=== PATIENT | female | born 1980 | race Caucasian/White ===

== ENCOUNTER 2016-06-09 06:52 | Emergency (ER) | payer OTHER ==
[2016-06-09 07:01] VITALS: BMI 29.2
[2016-06-09] MEDS ORDERED: morphine CARPU-JECT 2 MG/1 ML DISP.SYRIN IVPUSH ONE (07:14)
[2016-06-09] MEDS ORDERED: ONDANSETRON 4 MG/2 ML VIAL IVPUSH STA (07:14)
[2016-06-09] MEDS ORDERED: morphine CARPU-JECT 4 MG/1 ML DISP.SYRIN ONE (07:17)
[2016-06-09] MEDS ORDERED: ONDANSETRON 4 MG/2 ML VIAL ONE (07:17)
--- NOTE | 2016-06-09 07:28 | PDOC ---
History of Present Illness - General History Source: Patient Exam Limitations: No Limitations - History of Present Illness Initial Comments: 06/09/16 07:21 35-year-old female with history of DVT and PE, presents with complaints c/o left knee pain s/p fall/. Pt states she fell while crossing the street. Pt denies any pain at this time. Pt denies being dizzy before the fall. <Tramaine Gongora - Last Filed: 06/09/16 07:21> <Joy Sanon - Last Filed: 06/09/16 08:54> - General Chief Complaint: Pain Stated Complaint: LEFT LEG PAIN Time Seen by Provider: 06/09/16 07:16 Past History - Past Medical History Suicide Attempt (Hx): No Other medical history: PE, DVT - Surgical History Abdominal Surgery: Yes Cholecystectomy: Yes - Immunization History Immunization Up to Date: Yes - Psycho/Social/Smoking Cessation Hx Anxiety: No Suicidal Ideation: No Smoking Status: No Smoking History: Current every day smoker Have you smoked in the past 12 months: Yes Number of Cigarettes Smoked Daily: 5 If you are a former smoker, when did you quit?: 3 Cigars Per Day: 0 Information on smoking cessation initiated: No 'Breaking Loose' booklet given: 07/25/13 Hx Alcohol Use: No Drug/Substance Use Hx: No Substance Use Type: None <Tramaine Gongora - Last Filed: 06/09/16 07:21> <Joy Sanon - Last Filed: 06/09/16 08:54> - Past Medical History Allergies/Adverse Reactions: Allergies Allergy/AdvReac Type Severity Reaction Status Date / Time acetaminophen [From Vicodin] Allergy Verified 06/09/16 06:54 hydrocodone bitartrate Allergy Verified 06/09/16 06:54 [From Vicodin] ibuprofen Allergy Nausea Verified 06/09/16 06:54 Home Medications: Ambulatory Orders Rivaroxaban [Xarelto -] 20 mg PO BID #42 tablet 12/09/15 Ibuprofen [Motrin -] 600 mg PO TID PRN #21 tablet 06/09/16 Review of Systems - Review of Systems Constitutional: Yes: Symptoms Reported, See HPI. No: Chills, Diaphoresis, Fever , Loss of Appetite, Night Sweats, Weakness, Weight Stable, Unintentional Wgt. Loss, Unexplained wgt Loss, Other HEENTM: Yes: Symptoms Reported, See HPI. No: Eye Pain, Blurred Vision, Tearing , Recent change in vision, Double Vision, Cataracts, Ocular Prothesis, Ear Discharge, Nose Pain, Nose Congestion, Tinnitus, Nose Bleeding, Hearing Loss, Throat Pain, Throat Swelling Respiratory: Yes: Symptoms reported, See HPI. No: Cough, Orthopnea, Shortness of Breath, SOB with Exertion, Wheezing, Productive cough Cardiac (ROS): Yes: Symptoms Reported, See HPI. No: Chest Pain, Edema, Irregular Heart Rate ABD/GI: Yes: Symptoms Reported, See HPI, Abdominal Distended. No: Abd. Pain w/ defecation, Blood Streaked Bowels : Yes: Symptoms Reported, See HPI. No: Burning, Dysuria, Discharge, Frequency , Flank Pain, Hematuria Musculoskeletal: Yes: Symptoms Reported, See HPI, Joint Pain (right knee), Joint Swelling (right knee), Muscle Pain Integumentary: Yes: Symptoms Reported, See HPI. No: Bruising, Change in Color, Change in Hair/Nails, Dryness, Flushing, Lesions, Lumps Neurological: Yes: Symptoms reported, See HPI. No: Headache, Numbness, Paresthesia, Pre-Existing Deficit Psychiatric: No: Anxiety, Frequent Crying, Stressors, Sleep Pattern Change Endocrine: Yes: Symptoms Reported, See HPI. No: Excessive Sweating, Flushing, Intolerance to Cold, Increased Hunger, Increased Thirst, Increased Urine Hematologic/Lymphatic: Yes: Symptoms Reported, See HPI. No: Anemia, Easy Bleeding, Easy Bruising, Bleeding Diathesis, Lymph Node Abnormalities <Tramaine Gongora - Last Filed: 06/09/16 07:21> *Physical Exam - Vital Signs Last Vital Signs Temp Pulse Resp BP Pulse Ox 98.2 F 135 H 26 H 122/86 98 06/09/16 06:55 06/09/16 06:55 06/09/16 06:55 06/09/16 06:55 06/09/16 06:55 - Physical Exam Comments: 06/09/16 07:26 *Physical Exam General Appearance: Yes: Appropriately Dressed. moderate distress No: , Intoxicated HEENT: positive: EOMI, MICHAEL, Normal ENT Inspection, Normal Voice, TMs Normal, Pharynx Normal. negative: Pale Conjunctivae, Photophobia, Scleral Icterus (R), Scleral Icterus (L) Neck: positive: Trachea midline, Normal Thyroid, Supple. negative: Tender, Rigid, Carotid bruit, Stridor, Lymphadenopathy (R), Lymphadenopathy (L), Thyromegaly Respiratory/Chest: positive: Lungs Clear, Normal Breath Sounds. negative: Chest Tender, Respiratory Distress, Accessory Muscle Use, Labored Respiration, RES, Crackles, Rales, Rhonchi, Stridor, Wheezing, Dullness Cardiovascular: positive: Regular Rhythm, Regular Rate, S1, S2. negative: Edema , JVD, Murmur, Bradycardia, Tachycardia Vascular Pulses: Dorsalis-Pedis (R): 2+, Doralis-Pedis (L): 2+ Gastrointestinal/Abdominal: positive: Normal Bowel Sounds, Flat, Soft. negative : Tender, Organomegaly, Pulsatile Mass, Increased Bowel Sounds, Decreased BS, Distended, Guarding, Rebound, Hernia, Hepatomegaly, Spleenomegaly Lymphatic: negative: Adenopathy, Tenderness Musculoskeletal: positive: Normal Inspection. decreased range of motion to left knee and left ankle, with deformity to left knee negative: CVA Tenderness, Extremity: positive: Normal Capillary Refill, Normal Inspection, Normal Range of Motion, Pelvis Stable. negative: Tender, Pedal Edema, Swelling, Integumentary: positive: Normal Color, Dry, Warm. negative: Cyanotic, Erythema , Jaundice, Rash Neurologic: positive: cold food packer II-XII NML intact, Fully Oriented, Alert, Normal Mood/ Affect, Motor Strength 5/5. negative: EOM Palsy, Facial Droop, Sensory Deficit <Tramaine Gongora - Last Filed: 06/09/16 07:21> - Vital Signs Last Vital Signs Temp Pulse Resp BP Pulse Ox 98.2 F 108 H 18 102/52 100 06/09/16 06:55 06/09/16 08:22 06/09/16 08:22 06/09/16 08:22 06/09/16 08:22 <Joy Sanon - Last Filed: 06/09/16 08:54> ED Treatment Course - RADIOLOGY Radiology Studies Ordered: Category Date Time Status KNEE 3 POS-RIGHT [RAD] Stat Radiology 06/09/16 07:13 Ordered LEG TIB/FIB-RIGHT [RAD] Stat Radiology 06/09/16 07:13 Ordered <Tramaine Gongora - Last Filed: 06/09/16 07:21> - LABORATORY CBC & Chemistry Diagram: 06/09/16 07:52 06/09/16 07:52 - ADDITIONAL ORDERS Additional order review: Laboratory Results 06/09/16 06/09/16 06/09/16 07:52 07:52 07:52 WBC 16.0 H D RBC 4.03 Hgb 13.4 Hct 38.9 MCV 96.5 H MCHC 34.4 RDW 12.7 Plt Count 374 MPV 7.6 Neutrophils % 73.7 Lymphocytes % 18.7 D Monocytes % 6.0 Eosinophils % 0.9 Basophils % 0.7 INR 1.81 H D Sodium 139 Potassium 4.4 Chloride 106 Carbon Dioxide 21 Anion Gap 12 BUN 13 Creatinine 0.6 D Creat Clearance w eGFR > 60 Random Glucose 91 Calcium 9.0 Total Bilirubin 0.9 D AST 24 ALT 24 Alkaline Phosphatase 75 Total Protein 7.7 Albumin 4.2 06/09/16 07:52 RBC 4.03 MCV 96.5 H MCHC 34.4 RDW 12.7 MPV 7.6 Neutrophils % 73.7 Lymphocytes % 18.7 D Monocytes % 6.0 Eosinophils % 0.9 Basophils % 0.7 - Medications Given in the ED: ED Medications Discontinued Medications Generic Name Dose Route Start Last Admin Trade Name Noreen PRN Reason Stop Dose Admin Morphine Sulfate 8 mg 06/09/16 07:14 06/09/16 07:35 Morphine Injection - IVPUSH 06/09/16 07:15 8 mg ONCE ONE Administration Ondansetron HCl 4 mg 06/09/16 07:14 06/09/16 07:57 Zofran Injection IVPUSH 06/09/16 07:15 4 mg ONCE STA Administration <Joy Sanon - Last Filed: 06/09/16 08:54> Medical Decision Making - Medical Decision Making 06/09/16 07:28 signed out case to Dr. Hoyt <Tramaine Gongora - Last Filed: 06/09/16 07:21> - Medical Decision Making 06/09/16 08:50 pt with mechanical trip and fall and acute left knee injury She denies any fevers or chills, and warmth or swelling of the knee Patient states that she always has an elevated white count, and her doctor is aware of this She also has a history of a prior DVT/PE, for which she is on Xarelto X-rays are negative for acute fracture Knee immobilizer and crutches Vital Signs - 24 hr 06/09/16 06/09/16 06:55 08:22 Temperature 98.2 F Pulse Rate 135 H Pulse Rate [ 108 H Left Radial] Respiratory 26 H 18 Rate Blood Pressure 122/86 Blood Pressure 102/52 [Left Arm] O2 Sat by Pulse 98 100 Oximetry (%) Patient more comfortable after pain meds I did speak to the patient about seeing a cable strander Her primary care physician is Dr aJsso <Joy Sanon - Last Filed: 06/09/16 08:54> *DC/Admit/Observation/Transfer <Tramaine Gongora - Last Filed: 06/09/16 07:21> <Joy Sanon - Last Filed: 06/09/16 08:54> Diagnosis at time of Disposition: Right knee sprain - Prescriptions Prescriptions: Ibuprofen [Motrin -] 600 mg PO TID PRN #21 tablet PRN Reason: Pain - Referrals Referrals: Boy Argueta MD [Staff Physician] - - Patient Instructions Printed Discharge Instructions: DI for Knee Sprain, How to Use a Knee Immobilizer Additional Instructions: Please follow-up with Dr. Argueta if pain continues greater than [address] ice to the affected area as much as he can tolerate for the next 2 days, rest, and elevate. May take Motrin 600 mg times a day since she did not have allergy to Motrin and only a GI intolerance.
--- NOTE | 2016-06-09 07:58 | PDOC ---
*Physical Exam - Vital Signs Last Vital Signs Temp Pulse Resp BP Pulse Ox 98.2 F 135 H 26 H 122/86 98 06/09/16 06:55 06/09/16 06:55 06/09/16 06:55 06/09/16 06:55 06/09/16 06:55 ED Treatment Course - LABORATORY CBC & Chemistry Diagram: 06/09/16 07:52 06/09/16 07:52 Medical Decision Making - Medical Decision Making 06/09/16 07:27 Patient received in sign out from Dr. guerrero. Patient status post mechanical fall this morning complaining of left knee pain. Patient ordered for x-ray labs and pain control. patient awaiting x-ray. 06/09/16 08:35 Laboratory Tests 06/09/16 07:52 WBC 16.0 H D Hgb 13.4 Hct 38.9 Neutrophils % 73.7 X-ray negator acute findings. patient placed in a knee immobilizer and given crutches with an orthopedist referral. Selected Entries 06/09/16 08:22 Pulse Rate [ 108 H Left Radial] Respiratory 18 Rate Blood Pressure 102/52 Left Arm O2 Sat by Pulse 100 Oximetry (%) Laboratory Tests 12/08/15 02/26/16 14:18 18:14 WBC 10.2 H 11.2 H 06/09/16 08:46 Questioned patient about elevated white count and patient states has had an elevated white count for the past year intermittently and has seen a wigs salesperson with no significant findings. Patient states also sees a neurologist for neuropathy and pain management secondary to left ankle pain status post surgery 6 months ago. *DC/Admit/Observation/Transfer Diagnosis at time of Disposition: Sprain of left knee Qualifiers: Encounter type: initial encounter Involved ligament of knee: unspecified ligament Qualified Code(s): S83.92XA - Sprain of unspecified site of left knee, initial encounter - Discharge Dispostion Disposition: HOME Condition at time of disposition: Good - Prescriptions Prescriptions: Ibuprofen [Motrin -] 600 mg PO TID PRN #21 tablet PRN Reason: Pain - Referrals Referrals: Boy Argueta MD [Staff Physician] - - Patient Instructions Printed Discharge Instructions: DI for Knee Sprain, How to Use a Knee Immobilizer Additional Instructions: Please follow-up with Dr. Argueta if pain continues greater than [address] ice to the affected area as much as she can tolerate for the next 2 days, rest, and elevate. May take Motrin 600 mg times a day since she did not have allergy to Motrin and only a GI intolerance.
[2016-06-09 08:19] LABS: BASOPHIL 0.7 % (0-2.0); EOSINOPHIL 0.9 % (0-4.5); MCH 33.2 pg (25.7-33.7); MCHC 34.4 g/dl (32.0-36.0); MEAN CELL VOLUME 96.5 fl (80-96); MEAN PLT VOLUME 7.6 fl (7.5-11.1); NEUTROPHILS 73.7 % (42.8-82.8); PLATELET COUNT 374 K/MM3 (134-434); RDW 12.7 % (11.6-15.6)
[2016-06-09 08:32] LABS: INR 1.81 (0.82-1.09); PROTHROMBIN TIME (PATIENT) 20.2 SEC (9.98-11.88)
[2016-06-09 08:46] LABS: ALBUMIN 4.2 g/dl (3.4-5.0); ALK PHOS 75 U/L (45-117); ANION GAP 12 (8-16); BILIRUBIN,TOTAL 0.9 mg/dL (0.2-1.0); CO2 21 mmol/L (21-32); CREATININE 0.6 mg/dL (0.55-1.02); GLUCOSE,RANDOM 91 mg/dL (74-106); SGPT/ALT 24 U/L (12-78); TOT PROT 7.7 g/dl (6.4-8.2)
[2016-06-09 08:47] LABS: SGOT/AST 24 U/L (15-37)
[2016-06-09 09:14] VITALS: BP 110/70; PULSE 60; TEMP 98.1
== END 2016-06-09 09:07 | disposition home or self-care (01) ==
LOC: JER 06:52
PROC: 2W3QX1Z Immobilization of Right Lower Leg using Splint (ICD-10-PCS; principal; 2016-06-09)
PROC: 3E033NZ Introduction of Analgesics, Hypnotics, Sedatives into Peripheral Vein, Percutaneous Approach (ICD-10-PCS; 2016-06-09)
PROC: 3E033GC Introduction of Other Therapeutic Substance into Peripheral Vein, Percutaneous Approach (ICD-10-PCS; 2016-06-09)
DX: S83.91XA Sprain of unspecified site of right knee, initial encounter (principal); W18.39XA Other fall on same level, initial encounter; Y93.89 Activity, other specified; Y92.410 Unspecified street and highway as the place of occurrence of the external cause
CPT/HCPCS: 36415; 73562-TC-RT; 73590-TC-RT; 80053; 84703; 85025; 85610; 86850; 86900; 86901; 99284-25

== ENCOUNTER → 2016-08-10 | Emergency (ER) | payer OTHER ==
[~2016-08-10] MED LIST: ONDANSETRON 4 MG/2 ML VIAL ONE; PANTOPRAZOLE SODIUM 40 MG VIAL ONE; morphine CARPU-JECT 4 MG/1 ML DISP.SYRIN ONE
[2016-08-10 21:03] VITALS: BP 120/78; PULSE 105; TEMP 97.6; BMI 28.6
== END | disposition left against medical advice (07) ==
LOC: JER 20:43
DX: Z53.21 Procedure and treatment not carried out due to patient leaving prior to being seen by health care provider (principal)
CPT/HCPCS: 99281-25

== ENCOUNTER 2016-09-06 18:40 | Emergency (ER) | payer OTHER ==
[2016-09-06 18:47] VITALS: BP 114/71; PULSE 86; TEMP 98; BMI 27.4
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
[2016-09-06] MEDS ORDERED: KETOROLAC TROMETHAMINE 60 MG/2 ML VIAL IM ONE (21:31)
[2016-09-06] MEDS ORDERED: KETOROLAC TROMETHAMINE 60 MG/2 ML VIAL ONE (21:39)
== END 2016-09-06 22:35 | disposition home or self-care (01) ==
LOC: JERFT 18:40
PROC: 3E0233Z Introduction of Anti-inflammatory into Muscle, Percutaneous Approach (ICD-10-PCS; principal; 2016-09-06)
DX: M54.5 Low back pain (principal); M25.562 Pain in left knee; V43.52XA Car driver injured in collision with other type car in traffic accident, initial encounter; Y92.414 Local residential or business street as the place of occurrence of the external cause; Y93.89 Activity, other specified; Y99.8 Other external cause status; J45.909 Unspecified asthma, uncomplicated; F17.210 Nicotine dependence, cigarettes, uncomplicated; Z86.718 Personal history of other venous thrombosis and embolism
CPT/HCPCS: 72100-TC; 73562-TC-LT; 73610-TC-LT; 73630-TC-LT; 84703; 99281-25

== ENCOUNTER 2016-09-20 04:28 | Inpatient (IN) | payer OTHER ==
--- NOTE | 2016-09-20 04:52 | PDOC ---
[id number] No Limitations - History of Present Illness Initial Comments: 09/20/16 04:59 The patient is a 36 year old female with significant past medical history of DVT and PE who presents to the ED for nausea and vomiting. Patient reports she had some fruit juice and smoothie for breakfast and later on the evening she started to developed nausea and multiple episodes of vomiting. States her most recent episodes of vomiting, she noted she streaks of blood. She reports everyone in the household also had the same breakfast and are not ill. Patient also has complaints of midline abdominal pain that extends from the epigastric region down to the suprapuib region with chills. Denies fevers or diarrhea. The patient denies diaphoresis, chills, cough, SOB, chest pain, and palpitations. Allergies: acetaminophen, hydrocodone bitartrate, ibuprofen Social History: No alcohol, tobacco, or drug use reported. Past Surgical History: cholecystectomy PCP: None reported <Lala Payne - Last Filed: 09/20/16 04:59> - General History Source: Patient <Tramaine Gongora - Last Filed: 09/20/16 19:35> - General Chief Complaint: Pain Stated Complaint: ABD PAIN/VOMITING Time Seen by Provider: 09/20/16 04:43 Past History <Lala Payne - Last Filed: 09/20/16 04:59> - Past Medical History Asthma: Yes Suicide Attempt (Hx): No - Surgical History Abdominal Surgery: Yes Cholecystectomy: Yes - Immunization History Immunization Up to Date: Yes - Psycho/Social/Smoking Cessation Hx Anxiety: No Suicidal Ideation: No Smoking Status: No Smoking History: Current every day smoker Have you smoked in the past 12 months: No Number of Cigarettes Smoked Daily: 5 If you are a former smoker, when did you quit?: 3 Cigars Per Day: 0 Information on smoking cessation initiated: No 'Breaking Loose' booklet given: 07/25/13 Hx Alcohol Use: No Drug/Substance Use Hx: No Substance Use Type: None <Tramaine Gongora - Last Filed: 09/20/16 19:35> - Past Medical History Allergies/Adverse Reactions: Allergies Allergy/AdvReac Type Severity Reaction Status Date / Time ibuprofen Allergy Nausea Verified 09/20/16 04:38 acetaminophen [From Vicodin] AdvReac Verified 09/20/16 04:38 hydrocodone bitartrate AdvReac Verified 09/20/16 04:38 [From Vicodin] Home Medications: Ambulatory Orders NK [No Known Home Medication] 09/20/16 Review of Systems - Review of Systems Able to Perform ROS?: Yes Comments:: 09/20/16 05:00 CONSTITUTIONAL: +chills Absent: fever, no fatigue EYES: Absent: visual changes ENT: Absent: ear pain, no sore throat CARDIOVASCULAR: Absent: chest pain, no palpitations RESPIRATORY: Absent: cough, no SOB GI: +abdominal pain, nausea, vomiting Absent: no constipation, no diarrhea GENITOURINARY: Absent: dysuria, no frequency, no hematuria MUSCULOSKELETAL: Absent: back pain, no arthralgia, no myalgia SKIN: Absent: rash NEURO: Absent: headache <Lala Payne - Last Filed: 09/20/16 04:59> *Physical Exam - Vital Signs Last Vital Signs Temp Pulse Resp BP Pulse Ox 98.6 F 88 14 125/64 95 09/20/16 04:39 09/20/16 04:39 09/20/16 04:39 09/20/16 04:39 09/20/16 04:39 - Physical Exam Comments: 09/20/16 05:00 GENERAL: Well-appearing, well-nourished. No apparent distress. HEENT: Normocephalic, atraumatic. PERRL, EOM intact. CARDIOVASCULAR: Normal S1, S2. Regular rate and rhythm. PULMONARY: Clear to auscultation bilaterally. ABDOMEN: Soft, non-distended, mildly diffuse tenderness. No rebound or guarding. EXTREMITIES: Normal ROM in all four extremities. No gross deformities. SKIN: Warm, dry. No rash NEUROLOGICAL: No focal neurological deficits. <Lala Payne - Last Filed: 09/20/16 04:59> - Vital Signs Last Vital Signs Temp Pulse Resp BP Pulse Ox 98.6 F 88 14 125/64 95 09/20/16 04:39 09/20/16 04:39 09/20/16 04:39 09/20/16 04:39 09/20/16 04:39 <Tramaine Gongora - Last Filed: 09/20/16 19:35> ED Treatment Course - LABORATORY CBC & Chemistry Diagram: 09/20/16 04:55 09/20/16 04:55 <Tramaine Gongora - Last Filed: 09/20/16 19:35> Medical Decision Making - Medical Decision Making 09/20/16 19:35 Dr. Gongora: The scribe's documentation has been prepared under my direction and personally reviewed by me in its entirery. I confirm that the note above accurately reflects all work, treatment, procedures, and medical decision making performed by me. <Tramiane Gongora - Last Filed: 09/20/16 19:35> *DC/Admit/Observation/Transfer - Attestations Scribe Attestion: 09/20/16 05:00 Documentation prepared by Lala Payne, acting as medical technologist hematology for Tramaine Gongora MD/DO. <Lala Payne - Last Filed: 09/20/16 04:59> <Tramaine Gongora - Last Filed: 09/20/16 19:35> Diagnosis at time of Disposition: Intractable nausea and vomiting, Ileus Abdominal pain Qualifiers: Abdominal location: right lower quadrant Qualified Code(s): R10.31 - Right lower quadrant pain - Discharge Dispostion Condition at time of disposition: Stable
[2016-09-20] MEDS ORDERED: ONDANSETRON 4 MG/2 ML VIAL IVPUSH STA (04:53)
[2016-09-20] MEDS ORDERED: SODIUM CHLORIDE 1,000 ML IV STA ×3 (04:53→09:26)
[2016-09-20] MEDS ORDERED: PANTOPRAZOLE SODIUM 40 MG in SODIUM CHLORIDE 100 ML IVPB ONE (04:53)
[2016-09-20 05:04] LABS: BASOPHIL 0.3 % (0-2.0); MCH 32.1 pg (25.7-33.7); MCHC 33.4 g/dl (32.0-36.0); MEAN CELL VOLUME 96.1 fl (80-96); MEAN PLT VOLUME 7.2 fl (7.5-11.1); NEUTROPHILS 86.9 % (42.8-82.8); PLATELET COUNT 327 K/MM3 (134-434); RDW 13.4 % (11.6-15.6); WHITE BLOOD COUNT 18.2 K/mm3 (4.0-10.0)
[2016-09-20 05:29] LABS: ALBUMIN 4.5 g/dl (3.4-5.0); ALK PHOS 83 U/L (45-117); AMYLASE 77 U/L (25-115); ANION GAP 16 (8-16); BILIRUBIN,TOTAL 0.9 mg/dL (0.2-1.0); CALCIUM 9.4 mg/dL (8.5-10.1); CO2 26 mmol/L (21-32); COCKROFT - GAULT 100.4615; GLUCOSE,RANDOM 123 mg/dL (74-106); SGPT/ALT 37 U/L (12-78); TOT PROT 8.6 g/dl (6.4-8.2)
[2016-09-20 05:32] LABS: MAGNESIUM 2.3 mg/dL (1.8-2.4); SGOT/AST 26 U/L (15-37)
[2016-09-20] MEDS ORDERED: METOCLOPRAMIDE HCL INJECTION 10 MG/2 ML VIAL IVPUSH ONE (05:34)
[2016-09-20] MEDS ORDERED: morphine CARPU-JECT 2 MG/1 ML DISP.SYRIN IVPUSH ONE ×2 (05:34→06:36)
[2016-09-20] MEDS ORDERED: METOCLOPRAMIDE HCL INJECTION 10 MG/2 ML VIAL ONE (06:13)
[2016-09-20] MEDS ORDERED: morphine CARPU-JECT 2 MG/1 ML DISP.SYRIN ONE ×2 (06:13→07:42)
[2016-09-20] MEDS ORDERED: ONDANSETRON 4 MG/2 ML VIAL IVPUSH ONE (08:35)
[2016-09-20] MEDS ORDERED: ONDANSETRON 4 MG/2 ML VIAL ONE (08:47)
[2016-09-20 09:04] LABS: URINE APPEARANCE CLEAR; URINE BILIRUBIN NEGATIVE (NEGATIVE); URINE BLOOD 1+ (NEGATIVE); URINE COLOR STRAW; URINE GLUCOSE (UA) NEGATIVE (NEGATIVE); URINE KETONE 1+ (NEGATIVE); URINE LEUK ESTERASE NEGATIVE (NEGATIVE); URINE NITRITE NEGATIVE (NEGATIVE); URINE PROTEIN 2+ (NEGATIVE); URINE UROBILINOGEN NEGATIVE E.U./dl (0.2-1.0)
[2016-09-20] MEDS ORDERED: morphine CARPU-JECT 4 MG/1 ML DISP.SYRIN IVPUSH ONE ×2 (09:23→16:27)
[2016-09-20 09:24] LABS: URINE RBC 4 /hpf (0-3); URINE WBC 1 /hpf (3-5)
[2016-09-20] MEDS ORDERED: LEVOFLOXACIN 500 MG IVPB 100 ML IVPB ONE ×2 (09:25→10:30)
[2016-09-20] MEDS ORDERED: METRONIDAZOLE 500 MG PREMIXED 100 ML IVPB ONE ×3 (09:26→17:41)
[2016-09-20 09:29] LABS: URINE MARIJUANA THC POSITIVE ng/ml (CUTOFF=50)
--- NOTE | 2016-09-20 09:32 | PDOC ---
*Physical Exam - Vital Signs Last Vital Signs Temp Pulse Resp BP Pulse Ox 99.3 F 60 16 121/45 98 09/20/16 07:08 09/20/16 07:40 09/20/16 07:40 09/20/16 07:40 09/20/16 07:40 ED Treatment Course - LABORATORY CBC & Chemistry Diagram: 09/20/16 04:55 09/20/16 04:55 - ADDITIONAL ORDERS Additional order review: Laboratory Results 09/20/16 09/20/16 09/20/16 04:55 04:55 04:55 Sodium 141 Potassium 4.4 Chloride 99 Carbon Dioxide 26 D Anion Gap 16 BUN 14 Creatinine 1.0 D Creat Clearance w eGFR > 60 Random Glucose 123 H D Calcium 9.4 Magnesium 2.3 Total Bilirubin 0.9 AST 26 ALT 37 D Alkaline Phosphatase 83 Total Protein 8.6 H Albumin 4.5 Total Amylase 77 Lipase 87 Serum , Qual Negative Urine Color Straw Urine Appearance Clear Urine pH 6.0 Urine Protein 2+ H Urine Glucose (UA) Negative Urine Ketones 1+ H Urine Blood 1+ H Urine Nitrite Negative Urine Bilirubin Negative Urine Urobilinogen Negative Ur Leukocyte Esterase Negative Blood Type A POSITIVE Antibody Screen Negative 09/20/16 04:55 RBC 4.42 MCV 96.1 H MCHC 33.4 RDW 13.4 MPV 7.2 L Neutrophils % 86.9 H Lymphocytes % 8.7 D Monocytes % 4.1 Eosinophils % 0.0 D Basophils % 0.3 - RADIOLOGY Radiology Studies Ordered: Category Date Time Status CHEST X-RAY PORTABLE* [RAD] Stat Radiology 09/20/16 07:11 Completed - Medications Given in the ED: ED Medications Discontinued Medications Generic Name Dose Route Start Last Admin Trade Name Freq PRN Reason Stop Dose Admin Pantoprazole Sodium 40 mg/ 100 mls @ 200 mls/hr 09/20/16 04:53 09/20/16 05:11 Sodium Chloride IVPB 09/20/16 05:22 200 mls/hr ONCE ONE Administration Sodium Chloride 1,000 mls @ 1,000 mls/hr 09/20/16 04:53 09/20/16 06:52 Normal Saline - IV 09/20/16 05:52 1,000 mls/hr ASDIR STA Administration Sodium Chloride 1,000 mls @ 1,000 mls/hr 09/20/16 04:53 09/20/16 05:11 Normal Saline - IV 09/20/16 05:52 1,000 mls/hr ASDIR STA Administration Metoclopramide HCl 10 mg 09/20/16 05:34 09/20/16 06:18 Reglan Injection - IVPUSH 09/20/16 05:35 10 mg ONCE ONE Administration Morphine Sulfate 2 mg 09/20/16 05:34 09/20/16 06:18 Morphine Injection - IVPUSH 09/20/16 05:35 2 mg ONCE ONE Administration Morphine Sulfate 2 mg 09/20/16 06:36 09/20/16 07:45 Morphine Injection - IVPUSH 09/20/16 06:37 2 mg ONCE ONE Administration Ondansetron HCl 4 mg 09/20/16 04:53 09/20/16 05:11 Zofran Injection IVPUSH 09/20/16 04:54 4 mg ONCE STA Administration Ondansetron HCl 4 mg 09/20/16 08:35 09/20/16 08:50 Zofran Injection IVPUSH 09/20/16 08:36 4 mg ONCE ONE Administration Progress Note - Progress Note Progress Note: This patient was endorsed to me by Dr. Christina at 7 AM pending results of the CT scan of the abdomen and pelvis which shows dilated loops of proximal small bowel c/w an ileus versus early small bowel obstruction and questionable chronic appendicitis. I have reevaluated the patient at this time and she is still complaining of nausea with diffuse abdominal pain. She has tenderness diffusely upon palpation of the abdomen with no rebound or guarding. I have ordered blood cultures, Zofran for nausea and morphine for pain as well as IV fluids for hydration. I spoke to Dr. Jeffers regarding admission to [facility] floor. Dr. Jeffers requested consult for surgery and ID which have been placed. The patient has also had Flagyl and Levaquin ordered for antibiotic coverage. *DC/Admit/Observation/Transfer Diagnosis at time of Disposition: Abdominal pain, Intractable nausea and vomiting, Ileus - Discharge Dispostion Condition at time of disposition: Stable Admit: Yes
[2016-09-20] MEDS ORDERED: morphine CARPU-JECT 4 MG/1 ML DISP.SYRIN ONE (10:29)
--- NOTE | 2016-09-20 14:10 | PN ---
Progress Note (short form) - Note Progress Note: ID consult dictated imp/reccd 36 year old female admitted with nausea/vomiting and abdominal pain continues to have RLQ pain she is awake and alert vomiting has resolved RLQ pain possible appendicitis by CT scan surgery to evaluate WBC 18.2 blood cultures sent given levaquin and flagyl in ED no iv flagyl available in the hospital will switch to zosyn
--- NOTE | 2016-09-20 15:47 | CONS ---
DATE OF CONSULTATION: DATE OF DICTATION: 09/20/2016 INFECTIOUS DISEASE CONSULTATION REQUESTING PHYSICIAN: Carlos Jeffers M.D. HISTORY OF PRESENT ILLNESS: This is a 36-year-old woman who presented to the emergency room early this morning with complaints of nausea, vomiting. This started last night. She had multiple episodes of vomiting, and she had abdominal pain. She presented to the emergency room with these complaints. She was noted to have a white count of 18,000. She had a CAT scan of her abdomen and pelvis done that showed mild dilatation of the proximal small bowel status post cholecystectomy, some chronic stranding around the appendix, and I am asked to see her for a white count of 18,000. She denies any fevers or chills. She now notes that she has pain in her right lower quadrant. She has stopped vomiting. PAST MEDICAL HISTORY: Notable for currently history of DVT and PE. She is status post cholecystectomy in the past. She takes no medications. Her PCP is , but she says she sees him infrequently, and she does not like to go to the doctor. ALLERGIES: She is allergic to ACETAMINOPHEN, HYDROCODONE, and IBUPROFEN. She takes no medications at home. FAMILY HISTORY: Noncontributory. SOCIAL HISTORY: She has no sick contacts. Nobody else is sick at home. There is no history of any travel. She smokes 5 cigarettes a day and she denies any history of illicit substance use. PHYSICAL EXAMINATION: Vital signs: Temperature 99.3, pulse 78, blood pressure 99/48, respiratory rate 18, saturating 98% on room air. HEENT: Normocephalic. Eyes are anicteric. Neck: Supple. Lungs: Clear to auscultation. Heart: Regular rate and rhythm. Abdomen: Soft, no distention. She has bowel sounds. She has right lower quadrant pain on palpation. Extremities: Without edema. LABORATORY: White count is 18.2, hemoglobin 14.2, platelets 327. BUN and creatinine are 14 and 1. LFTs are normal. Urinalysis is negative with 1 white cell. Blood cultures are pending. IMPRESSION: In summary, this is a 36-year-old woman admitted with nausea, vomiting, abdominal pain who now continued to have right lower quadrant pain. She is awake and alert with possible appendicitis by CAT scan. Surgery has been called to evaluate her. White count is 18.2, blood cultures have been sent. She was given Levaquin and Flagyl in the emergency room. Apparently there is no IV metronidazole in the hospital, and she has had vomiting and is currently n.p.o., so will switch her to Zosyn at this time. Further recommendations to follow. SOFIYA LEWIS M.D. [id number]
--- NOTE | 2016-09-20 17:08 | EKG ---
Test Reason : Blood Pressure : / mmHG Vent. Rate : 059 BPM Atrial Rate : 059 BPM P-R Int : 104 ms QRS Dur : 080 ms QT Int : 448 ms P-R-T Axes : 015 017 008 degrees QTc Int : 443 ms SINUS BRADYCARDIA WITH MARKED SINUS ARRHYTHMIA WITH SHORT IA OTHERWISE NORMAL ECG WHEN COMPARED WITH ECG OF 26-FEB-2016 17:58, T WAVE VARIATION Confirmed by EMELY ANAYA MD ([id number]) on 09/20/2016 5:08:34 PM Referred By: Confirmed By:EMELY ANAYA MD
[2016-09-20] MEDS ORDERED: DEXAMETHASONE SOD PHOSPHATE 4 MG/1 ML VIAL ONE (17:18)
[2016-09-20] MEDS ORDERED: PROPOFOL 20 ML ONE (17:23)
[2016-09-20] MEDS ORDERED: LIDOCAINE HCL 2% (20ML MULTI-DOSE VIAL) NR ONE (17:23)
[2016-09-20] MEDS ORDERED: ROCURONIUM BROMIDE 50 MG/5 ML VIAL ONE (17:24)
--- NOTE | 2016-09-20 17:25 | CONSULT ---
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 ...LMP: 07/25/13 Heme/Onc: Yes: Other (DVT, PE) Endocrine: Yes: Diabetes Mellitus - Past Surgical History Past Surgical History: Yes: Cholecystectomy, - Alcohol/Substance Use Hx Alcohol Use: No - Smoking History Smoking history: Current every day smoker Have you smoked in the past 12 months: No Aproximately how many cigarettes per day: 5 If you are a former smoker, when did you quit?: 3 Home Medications - Allergies Allergies/Adverse Reactions: Allergies Allergy/AdvReac Type Severity Reaction Status Date / Time ibuprofen Allergy Nausea Verified 09/20/16 04:38 acetaminophen [From Vicodin] AdvReac Verified 09/20/16 04:38 hydrocodone bitartrate AdvReac Verified 09/20/16 04:38 [From Vicodin] - Home Medications Home Medications: Ambulatory Orders NK [No Known Home Medication] 09/20/16 Family Disease History - Family Disease History Family Disease History: Other: Mother (kidney stones) Review of Systems - Review of Systems Constitutional: reports: Malaise. denies: Fever Neck: reports: No Symptoms Cardiovascular: denies: Chest Pain Respiratory: denies: Cough Gastrointestinal: reports: Abdominal Pain. denies: Diarrhea, Vomiting Genitourinary: reports: No Symptoms Neurological: denies: Change in LOC Pain Intensity: 6 Physical Exam Vital Signs: Vital Signs Temperature 98.1 F 09/20/16 15:40 Pulse Rate 81 09/20/16 15:40 Respiratory Rate 18 09/20/16 15:40 Blood Pressure 128/74 09/20/16 15:40 O2 Sat by Pulse Oximetry (%) 95 09/20/16 15:40 Constitutional: Yes: Mild Distress Neck: Yes: Supple Cardiovascular: Yes: Regular Rate and Rhythm Respiratory: Yes: Diminished Gastrointestinal: Yes: Soft, Tenderness (RLQ), Tenderness, Rebound (RLQ). No: Distention Extremities: Yes: WNL Neurological: Yes: Alert, Oriented Labs: CBC,CMP WBC 18.2 K/mm3 (4.0-10.0) H 09/20/16 04:55 RBC 4.42 M/mm3 (3.60-5.2) 09/20/16 04:55 Hgb 14.2 GM/dL (10.7-15.3) 09/20/16 04:55 Hct 42.5 % (32.4-45.2) 09/20/16 04:55 MCV 96.1 fl (80-96) H 09/20/16 04:55 MCHC 33.4 g/dl (32.0-36.0) 09/20/16 04:55 RDW 13.4 % (11.6-15.6) 09/20/16 04:55 Plt Count 327 K/MM3 (134-434) 09/20/16 04:55 MPV 7.2 fl (7.5-11.1) L 09/20/16 04:55 Neutrophils % 86.9 % (42.8-82.8) H 09/20/16 04:55 Lymphocytes % 8.7 % (8-40) D 09/20/16 04:55 Monocytes % 4.1 % (3.8-10.2) 09/20/16 04:55 Eosinophils % 0.0 % (0-4.5) D 09/20/16 04:55 Basophils % 0.3 % (0-2.0) 09/20/16 04:55 Sodium 141 mmol/L (136-145) 09/20/16 04:55 Potassium 4.4 mmol/L (3.5-5.1) 09/20/16 04:55 Chloride 99 mmol/L (98-107) 09/20/16 04:55 Carbon Dioxide 26 mmol/L (21-32) D 09/20/16 04:55 Anion Gap 16 (8-16) 09/20/16 04:55 BUN 14 mg/dL (7-18) 09/20/16 04:55 Creatinine 1.0 mg/dL (0.55-1.02) D 09/20/16 04:55 Creat Clearance w eGFR > 60 (>60) 09/20/16 04:55 Random Glucose 123 mg/dL (74-106) H D 09/20/16 04:55 Lactic Acid 1.965 mmol/L (0.4-2.0) 09/20/16 10:15 Calcium 9.4 mg/dL (8.5-10.1) 09/20/16 04:55 Magnesium 2.3 mg/dL (1.8-2.4) 09/20/16 04:55 Total Bilirubin 0.9 mg/dL (0.2-1.0) 09/20/16 04:55 AST 26 U/L (15-37) 09/20/16 04:55 ALT 37 U/L (12-78) D 09/20/16 04:55 Alkaline Phosphatase 83 U/L (45-117) 09/20/16 04:55 Total Protein 8.6 g/dl (6.4-8.2) H 09/20/16 04:55 Albumin 4.5 g/dl (3.4-5.0) 09/20/16 04:55 Total Amylase 77 U/L (25-115) 09/20/16 04:55 Lipase 87 U/L (73-393) 09/20/16 04:55 Serum , Qual Negative 09/20/16 04:55 Imaging - Results Cat Scan: Report Reviewed, Image Reviewed Problem List - Problems (1) Abdominal pain Code(s): R10.9 - UNSPECIFIED ABDOMINAL PAIN Qualifiers: Abdominal location: right lower quadrant Qualified Code(s): R10.31 - Right lower quadrant pain (2) Appendicitis Code(s): K37 - UNSPECIFIED APPENDICITIS Qualifiers: Appendicitis type: acute appendicitis Acute appendicitis type: with localized peritonitis Qualified Code(s): K35.3 - Acute appendicitis with localized peritonitis Assessment/Plan 36 female with RLQ pain, elevated WBC and stranding around the appendix consistent with appendicitis NPO IV fluids Antibiotics Consented for laparoscopic possible open appendectomy Risks and benefits explained Understands and agrees
[2016-09-20] MEDS ORDERED: PROMETHAZINE HCL 25 MG/1 ML VIAL IVPUSH PRN ×2 (17:36→19:02)
[2016-09-20] MEDS ORDERED: ONDANSETRON 4 MG/2 ML VIAL IVPUSH PRN ×3 (17:36→19:02)
[2016-09-20] MEDS ORDERED: LACTATED RINGERS SOLUTION 1,000 ML IV SCH ×2 (17:45→19:02)
[2016-09-20] MEDS ORDERED: METRONIDAZOLE 500 MG PREMIXED 500 MG/100 ML MG IVPB ONE (17:45)
[2016-09-20] MEDS ORDERED: LABETALOL HCL 5 MG/1 ML (100MG/20 ML VIAL) ONE (17:50)
[2016-09-20] MEDS ORDERED: PIPERACILLIN/TAZOB 3.375 GM/50 ML PRE-DOCKED IVPB SCH (18:00)
[2016-09-20] MEDS ORDERED: BUPIVACAINE HCL/PF 0.5% (5MG/ML) 10 ML VIAL IJ ONE (18:09)
--- NOTE | 2016-09-20 18:22 | OP ---
Operative Note - Note: Operative Date: 09/20/16 Pre-Operative Diagnosis: Abdominal pain, acute appendicitis Operation: Laparoscopic appendectomy, diagnostic laparoscopy Post-Operative Diagnosis: Same as Pre-op Surgeon: Surendra De Jesus Scientific Manager: Renetta Allen Anesthesia: General Specimens Removed: Appendix Estimated Blood Loss (mls): 5 Operative Report Dictated: Yes
[2016-09-20] MEDS ORDERED: DEXAMETHASONE SOD PHOSPHATE 4 MG/1 ML VIAL IVPUSH PRN (18:29)
[2016-09-20] MEDS ORDERED: PROMETHAZINE HCL 25 MG/1 ML VIAL IVPB PRN (18:29)
[2016-09-20] MEDS ORDERED: HYDROmorphone *PCA* 10MG/50ML DISP.SYRIN PCA SCH (18:30)
[2016-09-20] MEDS ORDERED: HYDROmorphone HCL CARPU-JECT 2 MG/1 ML DISP.SYRIN ONE (18:34)
[2016-09-20] MEDS: HYDROmorphone HCL CARPU-JECT 1 MG/1 ML DISP.SYRIN IVPUSH PRN ×2 (18:36→18:46)
--- NOTE | 2016-09-20 19:47 | SPEC ---
DATE OF OPERATION: 09/20/2016 SURGEON: Jada De Jesus M.D. MULTIMEDIA SPECIALIST: Reyna Jean PREOPERATIVE DIAGNOSIS: Abdominal pain, rule out acute appendicitis. POSTOPERATIVE DIAGNOSIS: Abdominal pain, rule out acute appendicitis. PROCEDURE: Laparoscopic appendectomy, diagnostic laparoscopy. SPECIMENS: Appendix. ESTIMATED BLOOD LOSS: 5 mL. DRAINS: None. ANESTHESIA: GT. REASON FOR THE PROCEDURE: This is a 36-year-old female who presents to the hospital with abdominal pain. She was found to have right lower quadrant pain which was localized, elevated white blood cell count and stranding around her appendix. Because of this, she was consented for laparoscopic, possible open appendectomy. RISKS AND BENEFITS: The risks and benefits were explained for a laparoscopic, possible open appendectomy. These included bleeding, infection, hernia, OH, DVT, PE, injury to surrounding structures including the liver, colon, bowel, bladder, ureter, vessel injury, nerve injury, abscess formation, staple line leak, staple line dehiscence as some of the possible complications. The patient understood and signed informed consent. DESCRIPTION OF PROCEDURE: The patient was placed supine on the operating room table. The patient underwent general endotracheal intubation. A Cronin catheter was inserted by the nursing staff. The abdomen was prepped and draped in the usual sterile fashion. A timeout was performed. A periumbilical incision was made and a 5-mm optical trocar was inserted under direct visualization with the laparoscope. Pneumoperitoneum was then established. Subsequently, a 5-mm trocar was placed in the suprapubic area and a 12-mm trocar placed in the left lower quadrant. The patient was placed in Trendelenburg right side up position. After meticulous dissection, the appendix was identified. The appendix was freed from its surrounding structures and the appendix was retracted to the anterior abdominal wall. The base of the appendix was identified. A window was created within the mesentery near the base of the appendix. The appendix at its base was stapled using a laparoscopic Endo-ANEUDY stapler with a white load. The mesoappendix was then transected using a laparoscopic Endo-ANEUDY stapler with a white load. The appendix was placed in an EndoCatch bag. Inspection of both staple lines was identified. The staple line at the base of the appendix was noted to be fully intact. Hemostasis was noted at the staple line of the mesoappendix. Copious irrigation and suction was performed. The appendix was removed from the abdominal cavity and sent off the operative field as specimen. The patient was then placed in left side up position. The 12-mm trocar was removed. The fascia at this site was closed using a 0 Vicryl suture with a Abhinav-Mayco device. The patient was then placed supine. Pneumoperitoneum was desufflated and all further trocars were removed. All incision sites were irrigated and Marcaine was injected at all incision sites. The fascial suture was secured. All incision sites were closed using 4-0 Biosyn. Sterile dressings were applied. The patient tolerated the procedure well. The Cronin catheter was removed and the patient was transferred to the recovery room in stable condition. Inspection of the abdominal cavity was performed to look for any other source of abdominal pain, and no further gross pathology was noted. JADA DE JESUS M.D. [id number]
[2016-09-20] MEDS: HEPARIN NA (PORCINE) 5,000 UNITS/ML 1ML VIAL SQ SCH (23:05)
[2016-09-20] MEDS: MEPERIDINE HCL CARPU-JECT 50 MG/1 ML DISP.SYRIN IM PRN (23:05)
--- NOTE | 2016-09-20 23:16 | HP ---
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 ...LMP: 07/25/13 Heme/Onc: Yes: Other (DVT, PE) Endocrine: Yes: Diabetes Mellitus - Past Surgical History Past Surgical History: Yes: Cholecystectomy, - Smoking History Smoking history: Current every day smoker Have you smoked in the past 12 months: No Aproximately how many cigarettes per day: 5 If you are a former smoker, when did you quit?: 3 - Alcohol/Substance Use Hx Alcohol Use: No Home Medications - Allergies Allergies/Adverse Reactions: Allergies Allergy/AdvReac Type Severity Reaction Status Date / Time ibuprofen Allergy Nausea Verified 09/20/16 04:38 acetaminophen [From Vicodin] AdvReac Verified 09/20/16 04:38 hydrocodone bitartrate AdvReac Verified 09/20/16 04:38 [From Vicodin] - Home Medications Home Medications: Ambulatory Orders NK [No Known Home Medication] 09/20/16 Family Disease History - Family Disease History Family Disease History: Other: Mother (kidney stones) Review of Systems - Review of Systems Constitutional: reports: Loss of Appetite, Weakness Eyes: reports: No Symptoms HENT: reports: No Symptoms Neck: reports: No Symptoms Cardiovascular: reports: No Symptoms Respiratory: reports: No Symptoms Gastrointestinal: reports: Abdominal Pain, Nausea, Vomiting Genitourinary: reports: No Symptoms Breasts: reports: No Symptoms Reported Musculoskeletal: reports: No Symptoms Integumentary: reports: No Symptoms, Erythema Neurological: reports: No Symptoms Endocrine: reports: No Symptoms Hematology/Lymphatic: reports: No Symptoms Psychiatric: reports: No Symptoms Physical Examination Vital Signs: Vital Signs Temperature 98.6 F 09/20/16 20:15 Pulse Rate 74 09/20/16 20:15 Respiratory Rate 18 09/20/16 20:15 Blood Pressure 110/70 09/20/16 20:15 O2 Sat by Pulse Oximetry (%) 96 09/20/16 20:00 Constitutional: Yes: Moderate Distress Eyes: Yes: WNL HENT: Yes: WNL Neck: Yes: WNL Cardiovascular: Yes: WNL Respiratory: Yes: WNL Gastrointestinal: Yes: Tenderness Renal/: Yes: WNL Musculoskeletal: Yes: Muscle Weakness Extremities: Yes: WNL Edema: No Peripheral Pulses WNL: Yes Integumentary: Yes: WNL Wound/Incision: Yes: Clean/Dry Neurological: Yes: WNL ...Motor Strength: WNL Psychiatric: Yes: WNL Imaging - Results Cat Scan: Report Reviewed Problem List - Problems (1) Abdominal pain Code(s): R10.9 - UNSPECIFIED ABDOMINAL PAIN Qualifiers: Abdominal location: right lower quadrant Qualified Code(s): R10.31 - Right lower quadrant pain (2) Appendicitis Code(s): K37 - UNSPECIFIED APPENDICITIS Qualifiers: Appendicitis type: acute appendicitis Acute appendicitis type: with localized peritonitis Qualified Code(s): K35.3 - Acute appendicitis with localized peritonitis (3) Distended abdomen Code(s): R14.0 - ABDOMINAL DISTENSION (GASEOUS) Assessment/Plan surgical eval lap appendectomy benefit outweighs risk npo ivf iv abx pain control dvt prophylaxis
[2016-09-21] MEDS ORDERED: PIPERACILLIN/TAZOB 3.375 GM/50 ML PRE-DOCKED IVPB SCH (02:00)
[2016-09-21] MEDS ORDERED: PIPERACILLIN/TAZOB 3.375 GM/50 ML PRE-DOCKED IVPB ONE (02:00)
[2016-09-21 03:01] VITALS: BMI 31.4
[2016-09-21] MEDS: HEPARIN NA (PORCINE) 5,000 UNITS/ML 1ML VIAL SQ SCH (05:40)
[2016-09-21] MEDS: MEPERIDINE HCL CARPU-JECT 50 MG/1 ML DISP.SYRIN IM PRN (05:41)
[2016-09-21 08:02] VITALS: BP 118/64; PULSE 68; TEMP 98
[2016-09-21 08:04] LABS: BASOPHIL 0.3 % (0-2.0); MCHC 34.1 g/dl (32.0-36.0); MEAN CELL VOLUME 96.9 fl (80-96); MEAN PLT VOLUME 7.1 fl (7.5-11.1); NEUTROPHILS 75.4 % (42.8-82.8); PLATELET COUNT 247 K/MM3 (134-434); RDW 13.2 % (11.6-15.6); WHITE BLOOD COUNT 14.4 K/mm3 (4.0-10.0)
--- NOTE | 2016-09-21 08:04 | PN ---
[id number]. Pain control well via prn meds. OOB and ambulating. Voiding spontaneously. Passing flatus. Tolerating PO clears. Denies n/v/f/c, CP or SOB. Afebrile. AVSS. PE Gen: alert. nad. Abd: all surgical ports intact. No hematoma. <Jameel Stewart P - Last Filed: 09/21/16 08:00> - Note Progress Note: Agree POD 1 Laparoscopic appendectomy, diagnostic laparoscopy Pain controlled Tolerating diet AVSS Abd soft CBC, BMP 09/21/16 06:30 09/21/16 06:30 Doing well Can be discharged home from surgical standpoint F/U in 2 wseeks [phone] <Surendra De Jesus - Last Filed: 09/21/16 09:54> Problem List - Problems (1) Appendicitis Assessment/Plan: POD #1 s/p Lap Appy Regular diet Cleared for dc home from a surgical standpoint after she tolerates her breakfast. Pt to f/u with Dr. De Jesus in his office downstairs in 7-10 days for post-op check. No further surgical intervention. On behalf of Dr. De Jesus, thank you for the opportunity to participate in your patient's care. Code(s): K37 - UNSPECIFIED APPENDICITIS Qualifiers: Appendicitis type: acute appendicitis Acute appendicitis type: with localized peritonitis Qualified Code(s): K35.3 - Acute appendicitis with localized peritonitis <Jameel Stewart P - Last Filed: 09/21/16 08:00> - Problems (1) Abdominal pain Code(s): R10.9 - UNSPECIFIED ABDOMINAL PAIN Qualifiers: Abdominal location: right lower quadrant Qualified Code(s): R10.31 - Right lower quadrant pain (2) Appendicitis Code(s): K37 - UNSPECIFIED APPENDICITIS Qualifiers: Appendicitis type: acute appendicitis Acute appendicitis type: with localized peritonitis Qualified Code(s): K35.3 - Acute appendicitis with localized peritonitis <Surendra De Jesus - Last Filed: 09/21/16 09:54>
--- NOTE | 2016-09-21 08:43 | PN ---
Progress Note, Physician Chief Complaint: ID Post op for uncomplicated appendicitis - Current Medication List Current Medications: Active Medications Dexamethasone Sodium Phosphate (Decadron Injection -) 4 mg IVPUSH ONCE PRN PRN Reason: NAUSEA AND/OR VOMITING Diphenhydramine HCl (Benadryl Injection -) 12.5 mg IVPUSH ONCE PRN PRN Reason: FOR ITCHING Heparin Sodium (Porcine) (Heparin -) 5,000 unit SQ TID JAQUELINE Last Admin: 09/21/16 05:40 Dose: 5,000 unit Hydromorphone HCl (Dilaudid Gi Technician -) 0 mg RETAIL FIELD MERCHANDISER RETAIL FIELD MERCHANDISER JAQUELINE PRN Reason: Protocol Stop: 09/27/16 18:30 Last Admin: 09/20/16 19:28 Dose: 10 mg Lactated Ringer's (Lactated Ringers Solution) 1,000 mls @ 125 mls/hr IV ASDIR JAQUELINE Last Admin: 09/20/16 20:30 Dose: 125 mls/hr Meperidine HCl (Demerol Injection -) 50 mg IM Q6H PRN PRN Reason: PAIN Last Admin: 09/21/16 05:41 Dose: 50 mg Piperacillin Sod/Tazobactam Sod (Zosyn 3.375gm Ivpb (Pre-Docked)) 3.375 gm IVPB Q8H-IV JAQUELINE PRN Reason: Protocol Last Admin: 09/21/16 01:48 Dose: 3.375 gm Promethazine HCl (Phenergan Injection -) 12.5 mg IVPB Q6H PRN PRN Reason: NAUSEA AND/OR VOMITING - Objective Vital Signs: Vital Signs Temperature 98.0 F 09/21/16 08:01 Pulse Rate 68 09/21/16 08:01 Respiratory Rate 18 09/21/16 08:01 Blood Pressure 118/64 09/21/16 08:01 O2 Sat by Pulse Oximetry (%) 95 09/20/16 20:00 Constitutional: Yes: Well Nourished, No Distress Cardiovascular: Yes: S1, S2 Respiratory: Yes: WNL, Regular, CTA Bilaterally Gastrointestinal: Yes: Soft, Other (Incisional tenderness) Labs: CBC, BMP 09/21/16 06:30 Assessment/Plan Laboratory Tests 09/20/16 09/21/16 04:55 06:30 WBC 18.2 H 14.4 H Hgb 11.7 D Plt Count 247 D Blood cultures no growth today Assessment From the ID standpoint can go No antibiotics Surgical followup Sisi JADE
[2016-09-21 08:57] LABS: ALBUMIN 3.1 g/dl (3.4-5.0); ALK PHOS 61 U/L (45-117); ANION GAP 13 (8-16); BILIRUBIN,TOTAL 0.7 mg/dL (0.2-1.0); CALCIUM 8.1 mg/dL (8.5-10.1); CO2 24 mmol/L (21-32); COCKROFT - GAULT 173.1195; CREATININE 0.6 mg/dL (0.55-1.02); GLUCOSE,RANDOM 91 mg/dL (74-106); SGOT/AST 17 U/L (15-37); SGPT/ALT 23 U/L (12-78); TOT PROT 6.1 g/dl (6.4-8.2)
[2016-09-21] MEDS ORDERED: INFLUENZA VACCINE 60 MCG/0.5 ML (P/F DISP.SYRIN 16-17) IM ONE (10:00)
--- NOTE | 2016-09-21 10:26 | PN ---
Progress Note (short form) - Note Progress Note: Anesthesia post op note. S/P appendectomy, POD#1. Patient seen and examined. VSS. Tolerating PO. No apperent post anesthesia complications. 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 Can start pain management by PO meds. Signed off.
--- NOTE | 2016-09-21 10:31 | SURG ---
Surgery Tile Professional Note Tile Professional: Renetta Allen PA-C Date of Service: 09/20/16 Diagnosis: Abdominal pain, acute appendicitis Procedure: Laparoscopic appendectomy, diagnostic laparoscopy I was present for the entirety of the operative procedure. For further detail, please refer to operative report. Visit type - Case Type Case Type: ED Admission
--- NOTE | 2016-09-21 11:20 | DS ---
Physical Examination Vital Signs: Vital Signs Temperature 98.0 F 09/21/16 08:01 Pulse Rate 68 09/21/16 08:01 Respiratory Rate 18 09/21/16 08:01 Blood Pressure 118/64 09/21/16 08:01 O2 Sat by Pulse Oximetry (%) 95 09/21/16 09:00 Constitutional: Yes: No Distress Eyes: Yes: WNL HENT: Yes: WNL Neck: Yes: WNL Cardiovascular: Yes: WNL Respiratory: Yes: Wheezes Gastrointestinal: Yes: Tenderness Renal/: Yes: WNL Musculoskeletal: Yes: WNL Extremities: Yes: WNL Edema: No Peripheral Pulses WNL: Yes Integumentary: Yes: WNL Wound/Incision: Yes: Clean/Dry Neurological: Yes: WNL ...Motor Strength: WNL Psychiatric: Yes: WNL Labs: CBC, BMP 09/21/16 06:30 09/21/16 06:30 Discharge Summary Reason For Visit: UNCONTROLLABLE NAUSEA,VOMITING,ABD PAIN Current Active Problems Abdominal pain (Acute) Appendicitis (Acute) Distended abdomen (Acute) Ileus (Acute) Intractable nausea and vomiting (Acute) SBO (small bowel obstruction) (Acute) Tobacco abuse (Acute) Procedures: Principal: appendectomy Other Procedures: labs Hospital Course: admitted with abd pain, surgery laproscopic appendectomy with surgery, dc home f /u pmd today Condition: Stable - Instructions Diet, Activity, Other Instructions: Dr. De Jesus's Discharge Instructions Dear Alis Post Operative Instructions Physical activity Resume your normal everyday activity as tolerated no heavy lifting or exercise until seen by your surgeon. You may walk unlimited amounts of and climb stairs. You may resume driving the car when you feel safe and comfortable behind the wheel. Wound care If you have a bandage, leave it on, and keep dry for 48 - 72 hours. After that time discard the outer bandage. If there are tapes on the skin under the outer bandage, leave them in place. They will peel off in the next 7 to 10 days. Do Not peel them off. You may shower 2 days after surgery. If there are tapes present on the skin, they can get wet. Diet There are no dietary restrictions. Eat healthy, high-fiber foods. Drink 6 to 8 glasses of liquid each day. This will assist in keeping your bowels are regular. Pain management You may take Tylenol or acetaminophen or Ibuprofen (for example, Motrin, Advil etc.) Any pain prescription medication ordered should be taken as prescribed for moderate to severe pain. Call Dr. De Jesus for any of the following: Severe pain not relieved by medication Fever of 101 or higher Excessive bleeding or drainage on dressing Inability to urinate Call the office for a post operative appointment in 7 - 10 days. Surendra De Jesus M.D. [address] [place] [address], [address] Suites Referrals: Surendra De Jesus MD [Staff Physician] - Simon Jasso [Primary Care Provider] - Disposition: HOME - Home Medications Comprehensive Discharge Medication List: Ambulatory Orders Acetaminophen [Tylenol] 325 mg PO QID #60 tablet 09/21/[address] jasso today or tomorrow
--- NOTE | 2016-09-28 11:19 | PATH ---
Surgical Pathology Report Patient Name: IVAN FREY [facility]. Rec. #: [id number] /Age/Gender: 1980 (Age: 36) / F Account: [id number] Location: [address] [place] [address]/[facility] Taken: 09/20/2016 Received: 09/21/2016 Reported: 09/23/2016 Physicians: Surendra De Jesus M.D. Specimen(s) Received APPENDIX Clinical History Appendicitis Final Diagnosis APPENDIX, APPENDECTOMY: APPENDIX WITH FOCAL FEATURES OF EARLY ACUTE APPENDICITIS. Electronically Signed Daniele Alanis M.D. Gross Description Received in formalin, labeled "appendix" is a 6 cm in length vermiform appendix with a stapled margin of resection and moderate attached fat. The serosa is moss-smart and smooth. Sectioning reveals a focally hemorrhagic lumen. The wall of the appendix averages 0.1 cm in thickness. Blogs Manager sections are submitted in one cassette. Additional sections are submitted as follows: 2-resection margin of appendix; 4-6-eoppamxx submitted remainder of appendix. /09/21/2016 [facility]09/21/2016
== END 2016-09-21 11:33 | disposition home or self-care (01) | DRG 225 ==
LOC: JER 04:28 → JERBED 09:32 → J6S 20:38
PROVIDERS: ADMIT Family Medicine; ATTEND Family Medicine
PROC: 0DTJ4ZZ Resection of Appendix, Percutaneous Endoscopic Approach (ICD-10-PCS; principal; 2016-09-20 17:00)
DX: K35.80 Unspecified acute appendicitis (principal); F17.210 Nicotine dependence, cigarettes, uncomplicated; E11.9 Type 2 diabetes mellitus without complications; R14.0 Abdominal distension (gaseous); K56.7 Ileus, unspecified; Z86.718 Personal history of other venous thrombosis and embolism; Z86.711 Personal history of pulmonary embolism
CPT/HCPCS: 36415; 71010-TC; 74176-TC; 80048; 80053; 80307; 81003; 81015; 82150; 83605; 83690; 83735; 84703; 85025; 86850; 86900; 86901; 87040; 88304-TC; 90686; 93005; 93010; 94010; 94760; 99285-25; G0008; J1644

== ENCOUNTER 2016-11-14 21:58 | Emergency (ER) | payer OTHER ==
[2016-11-14 22:10] VITALS: BP 143/66; PULSE 80; TEMP 98.8; BMI 28.6
--- NOTE | 2016-11-14 22:14 | PDOC ---
History of Present Illness - General History Source: Patient Exam Limitations: No Limitations - History of Present Illness Initial Comments: 11/14/16 22:15 The patient is a 36 year old female with history of polysubstance abuse, history of DVT brought in by EMS for 1 day of left diffuse abdominal pain, worst in the epigastrium, nausea, and multiple episodes of NBNB vomiting. She also complains of chest discomfort and shortness of breath. No fever or chills. No constipation or diarrhea. No chest pain or lightheadedness. Patient is a poor historian and remainder of history is limited. Reports allergies to ibuprofen, acetominophen, hydrocodone She is approximately 2 months s/p appendectomy 09/20/16. Surgical history appedectomy, cholecystectomy, <Deepika Chino - Last Filed: 11/15/16 00:05> <Beba Fang - Last Filed: 11/16/16 01:59> - General Chief Complaint: Pain Stated Complaint: VOMIITING Time Seen by Provider: 11/14/16 22:09 Past History <Deepika Chino - Last Filed: 11/15/16 00:05> - Past Medical History Asthma: Yes Suicide Attempt (Hx): No - Surgical History Abdominal Surgery: Yes Cholecystectomy: Yes - Immunization History Immunization Up to Date: Yes - Psycho/Social/Smoking Cessation Hx Anxiety: No Suicidal Ideation: No Smoking Status: No Smoking History: Never smoked Have you smoked in the past 12 months: No Number of Cigarettes Smoked Daily: 5 If you are a former smoker, when did you quit?: 3 Cigars Per Day: 0 Information on smoking cessation initiated: No 'Breaking Loose' booklet given: 09/20/16 Hx Alcohol Use: No Drug/Substance Use Hx: No Substance Use Type: Alcohol, Cocaine, Marijuana Hx Substance Use Treatment: No <Beba Fang - Last Filed: 11/16/16 01:59> - Past Medical History Allergies/Adverse Reactions: Allergies Allergy/AdvReac Type Severity Reaction Status Date / Time ibuprofen Allergy Nausea Verified 11/14/16 22:07 acetaminophen [From Vicodin] AdvReac Verified 11/14/16 22:07 hydrocodone bitartrate AdvReac Verified 11/14/16 22:07 [From Vicodin] Home Medications: Ambulatory Orders Acetaminophen [Tylenol] 325 mg PO QID #60 tablet 09/21/16 Ondansetron [Zofran Odt -] 4 mg SL TID #21 od.tablet 11/15/16 Review of Systems - Review of Systems Able to Perform ROS?: Yes Comments:: 11/14/16 22:19 GENERAL/CONSTITUTIONAL: No fever or chills. No weakness. HEAD, EYES, EARS, NOSE AND THROAT: No change in vision. No ear pain or discharge. No sore throat CARDIOVASCULAR: No chest pain. RESPIRATORY: +Chest tightness, difficulty breathing. No hemoptysis. GASTROINTESTINAL: +LLQ pain, nausea, vomiting. No diarrhea or constipation. GENITOURINARY: No dysuria, frequency, or change in urination. MUSCULOSKELETAL: No joint or muscle swelling or pain. No neck or back pain. SKIN: No rash NEUROLOGIC: No headache, vertigo, loss of consciousness, or change in strength/ sensation. ENDOCRINE: No increased thirst. No abnormal weight change. HEMATOLOGIC/LYMPHATIC: +History of clots. No anemia, easy bleeding. ALLERGIC/IMMUNOLOGIC: No hives or skin allergy. <Deepika Chino - Last Filed: 11/15/16 00:05> *Physical Exam - Vital Signs Last Vital Signs Temp Pulse Resp BP Pulse Ox 98.8 F 80 14 143/66 100 11/14/16 22:08 11/14/16 22:08 11/14/16 22:08 11/14/16 22:08 11/14/16 22:08 - Physical Exam Comments: 11/14/16 23:57 GENERAL: Awake, alert, and fully oriented. Uncomfortable appearing, vomiting at bedside on initial evaluation. HEAD: No signs of trauma EYES: PERRLA, EOMI, sclera anicteric, conjunctiva clear ENT: Auricles normal inspection, hearing grossly normal, nares patent, oropharynx clear without exudates. Moist mucosa NECK: Normal ROM, supple, no lymphadenopathy, JVD, or masses LUNGS: Breath sounds equal, clear to auscultation bilaterally. No wheezes, and no crackles HEART: Regular rate and rhythm, normal S1 and S2, no murmurs, rubs or gallops ABDOMEN: +Epigastric tenderness to palpation, negative Cornejo's. Soft, normoactive bowel sounds. No guarding, no rebound. No masses EXTREMITIES: Normal range of motion, no edema. No clubbing or cyanosis. No cords, erythema, or tenderness NEUROLOGICAL: Cranial nerves II through XII grossly intact. Normal speech, normal gait SKIN: Warm, Dry, normal turgor, no rashes or lesions noted. <Deepika Chino - Last Filed: 11/15/16 00:05> - Vital Signs Last Vital Signs Temp Pulse Resp BP Pulse Ox 98.8 F 80 14 143/66 100 11/14/16 22:08 11/14/16 22:08 11/14/16 22:08 11/14/16 22:08 11/14/16 22:08 <Beba Fang - Last Filed: 11/16/16 01:59> ED Treatment Course - LABORATORY CBC & Chemistry Diagram: 11/14/16 22:43 11/14/16 23:21 <Deepika Chino - Last Filed: 11/15/16 00:05> - LABORATORY CBC & Chemistry Diagram: 11/14/16 22:43 11/14/16 23:21 <Beba Fang - Last Filed: 11/16/16 01:59> *DC/Admit/Observation/Transfer - Attestations Scribe Attestion: 11/14/16 22:21 Documentation prepared by Deepika Chino, acting as center medical and lab director for Beba Fang MD. <Deepika Chino - Last Filed: 11/15/16 00:05> <Beba Fang - Last Filed: 11/16/16 01:59> Diagnosis at time of Disposition: Abdominal pain in female patient - Discharge Dispostion Disposition: HOME Condition at time of disposition: Good - Prescriptions Prescriptions: Ondansetron [Zofran Odt -] 4 mg SL TID #21 od.tablet - Referrals Referrals: Simon Jasso [Primary Care Provider] - - Patient Instructions Printed Discharge Instructions: DI for Abdominal Pain-Adult Additional Instructions: Alis- Follow up with your surgeon and your primary care doctor. Return to us if worse or any new symptoms. Your CT scan does not show any obvious cause for your discomfort. Best- Dr. Chuck Blackburn
[2016-11-14] MEDS ORDERED: SODIUM CHLORIDE 1,000 ML IV STA (22:15)
[2016-11-14] MEDS ORDERED: ONDANSETRON 4 MG/2 ML VIAL IVPB ONE (22:15)
[2016-11-14] MEDS ORDERED: ONDANSETRON 4 MG/2 ML VIAL ONE (22:28)
[2016-11-14] MEDS ORDERED: PANTOPRAZOLE SODIUM 40 MG in SODIUM CHLORIDE 100 ML IVPB ONE (22:44)
[2016-11-14] MEDS ORDERED: PANTOPRAZOLE SODIUM 100 ML IVPB ONE (22:45)
[2016-11-14 22:49] LABS: BASOPHIL 0.5 % (0-2.0); EOSINOPHIL 0.8 % (0-4.5); MCH 32.3 pg (25.7-33.7); MEAN PLT VOLUME 7.6 fl (7.5-11.1); NEUTROPHILS 80.7 % (42.8-82.8); PLATELET COUNT 497 K/MM3 (134-434); RDW 13.8 % (11.6-15.6); WHITE BLOOD COUNT 15.5 K/mm3 (4.0-10.0)
[2016-11-14] MEDS ORDERED: METOCLOPRAMIDE HCL INJECTION 10 MG/2 ML VIAL ONE (23:18)
[2016-11-14] MEDS ORDERED: METOCLOPRAMIDE HCL INJECTION 10 MG/2 ML VIAL IVPUSH ONE (23:18)
[2016-11-14] MEDS ORDERED: SODIUM CHLORIDE 500 ML IV STA (23:30)
[2016-11-14 23:56] LABS: ALBUMIN 4.1 g/dl (3.4-5.0); ALK PHOS 76 U/L (45-117); ANION GAP 12 (8-16); BILIRUBIN,DIRECT 0.2 mg/dL (0.0-0.2); BILIRUBIN,TOTAL 0.7 mg/dL (0.2-1.0); CALCIUM 9.3 mg/dL (8.5-10.1); CO2 24 mmol/L (21-32); CREATININE 0.6 mg/dL (0.55-1.02); GLUCOSE,RANDOM 137 mg/dL (74-106); SGOT/AST 19 U/L (15-37); SGPT/ALT 36 U/L (12-78); TOT PROT 7.8 g/dl (6.4-8.2)
[2016-11-15] MEDS ORDERED: ONDANSETRON 4 MG/2 ML VIAL IVPUSH ONE (01:02)
[2016-11-15] MEDS ORDERED: METRONIDAZOLE 500 MG PREMIXED 100 ML IVPB ONE (01:07)
[2016-11-15] MEDS ORDERED: ONDANSETRON 4 MG/2 ML VIAL ONE (01:08)
[2016-11-15] MEDS ORDERED: LEVOFLOXACIN 500 MG IVPB 100 ML IVPB ONE (01:08)
--- NOTE | 2016-11-15 03:13 | PDOC ---
*Physical Exam - Vital Signs Last Vital Signs Temp Pulse Resp BP Pulse Ox 98.8 F 80 14 143/66 100 11/14/16 22:08 11/14/16 22:08 11/14/16 22:08 11/14/16 22:08 11/14/16 22:08 <BereChuck - Last Filed: 11/15/16 03:13> - Vital Signs Last Vital Signs Temp Pulse Resp BP Pulse Ox 98.8 F 80 14 143/66 100 11/14/16 22:08 11/14/16 22:08 11/14/16 22:08 11/14/16 22:08 11/14/16 22:08 <Lala Payne - Last Filed: 11/15/16 03:24> ED Treatment Course - LABORATORY CBC & Chemistry Diagram: 11/14/16 22:43 11/14/16 23:21 - ADDITIONAL ORDERS Additional order review: Laboratory Results 11/14/16 11/14/16 11/14/16 23:21 23:21 23:21 D-Dimer 442 H Sodium 139 Potassium 3.9 Chloride 103 Carbon Dioxide 24 Anion Gap 12 BUN 13 D Creatinine 0.6 Creat Clearance w eGFR > 60 Random Glucose 137 H D Calcium 9.3 Total Bilirubin 0.7 Direct Bilirubin 0.2 AST 19 ALT 36 D Alkaline Phosphatase 76 D Total Protein 7.8 D Albumin 4.1 D Lipase 315 Serum , Qual Negative 11/14/16 11/14/16 22:43 22:43 D-Dimer Cancelled Sodium Cancelled Potassium Cancelled Chloride Cancelled Carbon Dioxide Cancelled Anion Gap Cancelled BUN Cancelled Creatinine Cancelled Creat Clearance w eGFR Cancelled Random Glucose Cancelled Calcium Cancelled Total Bilirubin Cancelled Direct Bilirubin AST Cancelled ALT Cancelled Alkaline Phosphatase Cancelled Total Protein Cancelled Albumin Cancelled Lipase Cancelled Serum , Qual 11/14/16 22:43 RBC 4.41 D MCV 95.0 MCHC 34.0 RDW 13.8 MPV 7.6 Neutrophils % 80.7 Lymphocytes % 13.9 D Monocytes % 4.1 Eosinophils % 0.8 D Basophils % 0.5 - Medications Given in the ED: ED Medications Discontinued Medications Generic Name Dose Route Start Last Admin Trade Name Freq PRN Reason Stop Dose Admin Diphenhydramine HCl 25 mg 11/14/16 23:18 11/14/16 23:25 Benadryl Injection - IVPUSH 11/14/16 23:19 25 mg ONCE ONE Administration Sodium Chloride 1,000 mls @ 1,000 mls/hr 11/14/16 22:15 11/14/16 22:43 Normal Saline - IV 11/14/16 23:14 1,000 mls/hr ASDIR STA Administration Pantoprazole Sodium 40 mg/ 100 mls @ 200 mls/hr 11/14/16 22:44 11/14/16 22:55 Sodium Chloride IVPB 11/14/16 23:13 200 mls/hr ONCE ONE Administration Sodium Chloride 500 mls @ 500 mls/hr 11/14/16 23:30 11/15/16 01:21 Normal Saline - IV 11/15/16 00:29 500 mls/hr ASDIR STA Administration Metoclopramide HCl 10 mg 11/14/16 23:18 11/14/16 23:25 Reglan Injection - IVPUSH 11/14/16 23:19 10 mg ONCE ONE Administration Ondansetron HCl 4 mg 11/14/16 22:15 11/14/16 22:43 Zofran Injection IVPB 11/14/16 22:16 4 mg ONCE ONE Administration Ondansetron HCl 4 mg 11/15/16 01:02 11/15/16 01:21 Zofran Injection IVPUSH 11/15/16 01:03 4 mg ONCE ONE Administration <Chuck Blackbrun - Last Filed: 11/15/16 03:13> - LABORATORY CBC & Chemistry Diagram: 11/14/16 22:43 11/14/16 23:21 - ADDITIONAL ORDERS Additional order review: Laboratory Results 11/14/16 11/14/16 11/14/16 23:21 23:21 23:21 D-Dimer 442 H Sodium 139 Potassium 3.9 Chloride 103 Carbon Dioxide 24 Anion Gap 12 BUN 13 D Creatinine 0.6 Creat Clearance w eGFR > 60 Random Glucose 137 H D Calcium 9.3 Total Bilirubin 0.7 Direct Bilirubin 0.2 AST 19 ALT 36 D Alkaline Phosphatase 76 D Total Protein 7.8 D Albumin 4.1 D Lipase 315 Serum , Qual Negative 11/14/16 11/14/16 22:43 22:43 D-Dimer Cancelled Sodium Cancelled Potassium Cancelled Chloride Cancelled Carbon Dioxide Cancelled Anion Gap Cancelled BUN Cancelled Creatinine Cancelled Creat Clearance w eGFR Cancelled Random Glucose Cancelled Calcium Cancelled Total Bilirubin Cancelled Direct Bilirubin AST Cancelled ALT Cancelled Alkaline Phosphatase Cancelled Total Protein Cancelled Albumin Cancelled Lipase Cancelled Serum , Qual 11/14/16 22:43 RBC 4.41 D MCV 95.0 MCHC 34.0 RDW 13.8 MPV 7.6 Neutrophils % 80.7 Lymphocytes % 13.9 D Monocytes % 4.1 Eosinophils % 0.8 D Basophils % 0.5 - RADIOLOGY Radiograph Interpretation: 11/15/16 03:24 EXAM: CTA ABDOMEN AND PELVIS and CTA CHEST Reviewed by Imaging exhaust emissions inspector: CHEST No large central PE, but segmental/ subsegmental artery evaluation limited by motion artifact. No aortic dissection or aneurysm. No pneumonia or pleural effusions. Minimal anterior mediastinal soft tissue, probably thymic. Small hiatal hernia. ABDOMEN/ PELVIS No aortic dissection or aneurysm. 1.4 cm dominant follicle appearing in left ovary since 09/20/16. Ascending colon slightly more thickened compared to prior exam, suspect underdistention plus chronic submucosal fat deposition, but colitis not excluded. No bowel obstruction, free fluid or free air. Appendectomy appearing. Unremarkable pancreas and kidneys. Cholecystectomy. Evaluation slightly limited by motion artifact. - Medications Given in the ED: ED Medications Discontinued Medications Generic Name Dose Route Start Last Admin Trade Name Freq PRN Reason Stop Dose Admin Diphenhydramine HCl 25 mg 11/14/16 23:18 11/14/16 23:25 Benadryl Injection - IVPUSH 11/14/16 23:19 25 mg ONCE ONE Administration Sodium Chloride 1,000 mls @ 1,000 mls/hr 11/14/16 22:15 11/14/16 22:43 Normal Saline - IV 11/14/16 23:14 1,000 mls/hr ASDIR STA Administration Pantoprazole Sodium 40 mg/ 100 mls @ 200 mls/hr 11/14/16 22:44 11/14/16 22:55 Sodium Chloride IVPB 11/14/16 23:13 200 mls/hr ONCE ONE Administration Sodium Chloride 500 mls @ 500 mls/hr 11/14/16 23:30 11/15/16 01:21 Normal Saline - IV 11/15/16 00:29 500 mls/hr ASDIR STA Administration Metoclopramide HCl 10 mg 11/14/16 23:18 11/14/16 23:25 Reglan Injection - IVPUSH 11/14/16 23:19 10 mg ONCE ONE Administration Ondansetron HCl 4 mg 11/14/16 22:15 11/14/16 22:43 Zofran Injection IVPB 11/14/16 22:16 4 mg ONCE ONE Administration Ondansetron HCl 4 mg 11/15/16 01:02 11/15/16 01:21 Zofran Injection IVPUSH 11/15/16 01:03 4 mg ONCE ONE Administration <Lala Payne - Last Filed: 11/15/16 03:24> *DC/Admit/Observation/Transfer - Discharge Dispostion Admit: No - Attestations Physician Attestion: 11/15/16 03:13 I, Dr. Chuck Blackburn, attest that this document has been prepared under my direction and personally reviewed by me in its entirety. I further attest, that it accurately reflects all work, treatment, procedures and medical decision -making performed by me. <Chuck Blackburn - Last Filed: 11/15/16 03:13> - Attestations Scribe Attestion: 11/15/16 03:24 Documentation prepared by Lala Payne, acting as medical apparatus model maker for Chuck Blackburn MD/. <Lala Payne - Last Filed: 11/15/16 03:24> Diagnosis at time of Disposition: Abdominal pain in female patient - Discharge Dispostion Disposition: HOME Condition at time of disposition: Good - Referrals Referrals: Simon Jasso [Primary Care Provider] - - Patient Instructions Printed Discharge Instructions: DI for Abdominal Pain-Adult Additional Instructions: Alis- Follow up with your surgeon and your primary care doctor. Return to us if worse or any new symptoms. Your CT scan does not show any obvious cause for your discomfort. Best- Dr. Chuck Blackburn - Post Discharge Activity
[2016-11-15] MEDS ORDERED: PROMETHAZINE HCL 50 MG/1 ML AMP IM ONE (03:26)
[2016-11-15] MEDS ORDERED: PROMETHAZINE HCL 25 MG/1 ML VIAL ONE (03:29)
--- NOTE | 2016-11-15 17:22 | EKG ---
Test Reason : Blood Pressure : / mmHG Vent. Rate : 064 BPM Atrial Rate : 064 BPM P-R Int : 108 ms QRS Dur : 080 ms QT Int : 486 ms P-R-T Axes : 006 018 023 degrees QTc Int : 501 ms SINUS RHYTHM WITH SHORT LA PROLONGED QT ABNORMAL ECG WHEN COMPARED WITH ECG OF 20-SEP-2016 07:34, NONSPECIFIC T WAVE ABNORMALITY NO LONGER EVIDENT IN LATERAL LEADS QT HAS LENGTHENED AND U WAVES IN SELECTED LEADS Confirmed by ROSA MUELLER MD ([id number]) on 11/15/2016 5:22:04 PM Referred By: Confirmed By:ROSA MUELLER MD
== END 2016-11-15 03:52 | disposition home or self-care (01) ==
LOC: JER 21:58
PROC: 3E0337Z Introduction of Electrolytic and Water Balance Substance into Peripheral Vein, Percutaneous Approach (ICD-10-PCS; principal; 2016-11-14)
PROC: 3E033GC Introduction of Other Therapeutic Substance into Peripheral Vein, Percutaneous Approach (ICD-10-PCS; 2016-11-14)
PROC: 3E033GC Introduction of Other Therapeutic Substance into Peripheral Vein, Percutaneous Approach (ICD-10-PCS; 2016-11-14)
PROC: 3E033GC Introduction of Other Therapeutic Substance into Peripheral Vein, Percutaneous Approach (ICD-10-PCS; 2016-11-14)
PROC: 3E033GC Introduction of Other Therapeutic Substance into Peripheral Vein, Percutaneous Approach (ICD-10-PCS; 2016-11-14)
DX: R10.84 Generalized abdominal pain (principal)
CPT/HCPCS: 36415; 71275-TC; 74177-TC; 80053; 80076; 83690; 84703; 85025; 85379; 87040; 93005; 93010; 96361; 96365; 96375; 99283-25

== ENCOUNTER 2017-02-09 16:46 | Emergency (ER) | payer OTHER ==
[2017-02-09 17:09] VITALS: BP 131/79; PULSE 108; TEMP 98.4; BMI 29.2
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
[2017-02-09] MEDS ORDERED: KETOROLAC TROMETHAMINE 60 MG/2 ML VIAL IM ONE (19:57)
[2017-02-09] MEDS ORDERED: KETOROLAC TROMETHAMINE 60 MG/2 ML VIAL ONE (19:58)
== END 2017-02-09 20:35 | disposition home or self-care (01) ==
LOC: JERFT 16:46
PROC: 3E0233Z Introduction of Anti-inflammatory into Muscle, Percutaneous Approach (ICD-10-PCS; principal; 2017-02-09)
DX: M54.6 Pain in thoracic spine (principal); M54.2 Cervicalgia; V43.52XA Car driver injured in collision with other type car in traffic accident, initial encounter; Y93.89 Activity, other specified; Y92.410 Unspecified street and highway as the place of occurrence of the external cause
CPT/HCPCS: 72050-TC; 72070-TC; 72100-TC; 84703; 99281-25

== ENCOUNTER 2017-06-27 13:03 | Emergency (ER) | payer OTHER ==
[2017-06-27 13:40] VITALS: BP 127/71; PULSE 91; TEMP 97.8; BMI 32.5
--- NOTE | 2017-06-27 16:14 | PDOC ---
History of Present Illness - General Chief Complaint: Pain Stated Complaint: RT LEG PAIN Time Seen by Provider: 06/27/17 14:51 History Source: Patient Exam Limitations: No Limitations - History of Present Illness Initial Comments: 06/27/17 16:04 37 y/o female presents to the ED with nasal congestion and frontal pressure since Monday. Pt also requesting pain medication for her neuropathy. Pt states her physician normally gives her Gabepentin but was not in the office today and told her to go to the ED. Pt denies fever, sore throat, cough, or difficulty breathing. Severity: mild Associated Symptoms: reports: headaches Past History - Travel Traveled outside of the country in the last 30 days: No - Past Medical History Allergies/Adverse Reactions: Allergies Allergy/AdvReac Type Severity Reaction Status Date / Time ibuprofen Allergy Nausea Verified 06/27/17 13:37 acetaminophen [From Vicodin] AdvReac Verified 06/27/17 13:37 hydrocodone bitartrate AdvReac Verified 06/27/17 13:37 [From Vicodin] Home Medications: Ambulatory Orders Gabapentin [Neurontin] 300 mg PO ASDIR 06/27/17 Asthma: Yes - Surgical History Abdominal Surgery: Yes Cholecystectomy: Yes - Immunization History Immunization Up to Date: Yes - Suicide/Smoking/Psychosocial Hx Smoking Status: No Smoking History: Current every day smoker Have you smoked in the past 12 months: No Number of Cigarettes Smoked Daily: 10 If you are a former smoker, when did you quit?: 3 Cigars Per Day: 0 Information on smoking cessation initiated: No 'Breaking Loose' booklet given: 09/20/16 Hx Alcohol Use: No Drug/Substance Use Hx: No Substance Use Type: None Hx Substance Use Treatment: No Patient Lives Alone: No Review of Systems - Review of Systems Able to Perform ROS?: Yes Constitutional: No: Symptoms Reported HEENTM: Yes: Nose Congestion Respiratory: No: Symptoms reported Cardiac (ROS): No: Symptoms Reported ABD/GI: No: Symptoms Reported : No: Symptoms Reported Musculoskeletal: Yes: Muscle Pain (bilateral legs) Integumentary: No: Symptoms Reported Neurological: Yes: Headache (frontal) *Physical Exam - Vital Signs Last Vital Signs Temp Pulse Resp BP Pulse Ox 97.8 F 91 H 20 127/71 100 06/27/17 13:37 06/27/17 13:37 06/27/17 13:37 06/27/17 13:37 06/27/17 13:37 - Physical Exam General Appearance: Yes: Nourished, Appropriately Dressed. No: Apparent Distress HEENT: positive: EOMI, MICHAEL, Nasal Congestion, Sinus Tenderness (frontal). negative: Rhinorrhea Neck: positive: Supple Respiratory/Chest: positive: Lungs Clear, Normal Breath Sounds. negative: Respiratory Distress, Accessory Muscle Use Cardiovascular: positive: Regular Rhythm, Regular Rate. negative: Murmur Extremity: positive: Normal Capillary Refill, Normal Inspection, Normal Range of Motion. negative: Tender Integumentary: positive: Normal Color, Warm, Moist Medical Decision Making - Medical Decision Making 06/27/17 16:17 Pt with nasal congestion and sinus pressure. Pt also with neuropathy requesting Neurontin refill. Pt will be discharged home with flonase and naprosyn rx. *DC/Admit/Observation/Transfer Diagnosis at time of Disposition: Sinus pressure, Leg pain - Discharge Dispostion Disposition: HOME Condition at time of disposition: Good - Referrals Referrals: Simon Jasso [Primary Care Provider] - - Patient Instructions Printed Discharge Instructions: DI for Sinus Headache Additional Instructions: Please use flonase as prescribed. Take naprosyn as needed for pain - Post Discharge Activity
== END 2017-06-27 16:22 | disposition home or self-care (01) ==
LOC: JERFT 13:03
DX: R51 Headache (principal); G62.9 Polyneuropathy, unspecified; M79.662 Pain in left lower leg; M79.661 Pain in right lower leg
CPT/HCPCS: 99281-25

== ENCOUNTER 2017-12-08 14:57 | Emergency (ER) | payer OTHER ==
[2017-12-08 15:10] VITALS: BMI 30.9
[2017-12-08] MEDS ORDERED: ONDANSETRON 4 MG/2 ML VIAL IVPUSH ONE ×2 (16:11→18:34)
[2017-12-08] MEDS ORDERED: SODIUM CHLORIDE 0.9% 1000 ML INFUS.BAG IV ONE (16:12)
[2017-12-08] MEDS ORDERED: ONDANSETRON 4 MG/2 ML VIAL ONE ×2 (16:13→18:41)
[2017-12-08] MEDS ORDERED: PANTOPRAZOLE SODIUM 40 MG VIAL IVPUSH ONE (16:14)
[2017-12-08] MEDS ORDERED: PANTOPRAZOLE SODIUM 40 MG VIAL ONE (16:21)
[2017-12-08 16:38] LABS: BASO % 0.3 % (0-2.0); EOS % 0.1 % (0-4.5); HEMATOCRIT 41.6 % (32.4-45.2); HEMOGLOBIN 14.3 GM/dL (10.7-15.3); LYMPH % 9.6 % (8-40); MCHC 34.3 g/dl (32.0-36.0); MEAN CELL VOLUME 96.2 fl (80-96); MEAN PLT VOLUME 8.1 fl (7.5-11.1); MONO % 4.5 % (3.8-10.2); NEUT % 85.5 % (42.8-82.8); PLATELET COUNT 373 K/MM3 (134-434); RBC 4.32 M/mm3 (3.60-5.2); RDW 13.1 % (11.6-15.6); WHITE BLOOD COUNT 16.2 K/mm3 (4.0-10.0)
[2017-12-08 16:55] LABS: INR 1.07 (0.83-1.09); PROTHROMBIN TIME (PATIENT) 12.1 SEC (9.7-13.0)
[2017-12-08 16:57] LABS: ACTIVATED PTT 29.8 SECONDS (25.2-36.5)
[2017-12-08] MEDS ORDERED: morphine CARPU-JECT 4 MG/1 ML DISP.SYRIN IVPUSH ONE ×2 (16:57→18:47)
[2017-12-08] MEDS ORDERED: morphine SULFATE 4 MG/ML VIAL ONE ×2 (17:01→19:09)
--- NOTE | 2017-12-08 17:01 | PDOC ---
History of Present Illness - General History Source: Patient Exam Limitations: No Limitations <Roma Church - Last Filed: 12/08/17 16:59> - General History Source: Patient Exam Limitations: No Limitations - History of Present Illness Initial Comments: 12/08/17 17:05 The patient is a 37 year old female, with a significant PMH of DVT, who presents to the emergency department with hematemesis. The patient states she woke up vomiting around 3 am accompanied with blood and LLQ pain that radiates to the back. The patient also mentions having chills but denies fever. The patient denies chest pain, shortness of breath, headache and dizziness. Denies diarrhea and constipation. Denies dysuria, frequency, urgency and hematuria. Allergies: NKDA Past surgical history: Abdominal and cholecystectomy surgery Social history: Former smoker but denies alcohol and recreational drug use PCP: Simon Jasso <Ricky Armstrong - Last Filed: 12/08/17 17:19> - General Chief Complaint: Pain, Acute Stated Complaint: ABD PAIN Past History - Past Medical History Asthma: Yes COPD: No - Surgical History Abdominal Surgery: Yes Cholecystectomy: Yes - Immunization History Immunization Up to Date: Yes - Suicide/Smoking/Psychosocial Hx Smoking Status: No Smoking History: Former smoker Have you smoked in the past 12 months: No Number of Cigarettes Smoked Daily: 10 If you are a former smoker, when did you quit?: 3 Cigars Per Day: 0 Information on smoking cessation initiated: No 'Breaking Loose' booklet given: 09/20/16 Hx Alcohol Use: No Drug/Substance Use Hx: No Substance Use Type: None Hx Substance Use Treatment: No <Roma Church - Last Filed: 12/08/17 16:59> <Ricky Armstrong - Last Filed: 12/08/17 17:19> - Past Medical History Allergies/Adverse Reactions: Allergies Allergy/AdvReac Type Severity Reaction Status Date / Time ibuprofen Allergy Nausea Verified 12/08/17 15:10 acetaminophen [From Vicodin] AdvReac Verified 12/08/17 15:10 hydrocodone bitartrate AdvReac Verified 12/08/17 16:35 [From Vicodin] Home Medications: Ambulatory Orders Gabapentin [Neurontin] 300 mg PO ASDIR 06/27/17 Naproxen [Naprosyn -] 375 mg PO Q12H PRN #10 tablet 06/27/17 Review of Systems - Review of Systems Able to Perform ROS?: Yes Comments:: 12/08/17 17:13 GENERAL/CONSTITUTIONAL:+Chills. No fever or weakness. HEAD, EYES, EARS, NOSE AND THROAT: No change in vision. No ear pain or discharge. No sore throat. CARDIOVASCULAR: No chest pain or shortness of breath. RESPIRATORY: No cough, wheezing, or hemoptysis. GASTROINTESTINAL: +Nausea, +vomiting. No diarrhea or constipation. GENITOURINARY: +abdomen pain. No dysuria, frequency, or change in urination. MUSCULOSKELETAL: No joint or muscle swelling or pain. No neck or back pain. SKIN: No rash NEUROLOGIC: No headache, vertigo, loss of consciousness, or change in strength/ sensation. ENDOCRINE: No increased thirst. No abnormal weight change. HEMATOLOGIC/LYMPHATIC: No anemia, easy bleeding, or history of blood clots. ALLERGIC/IMMUNOLOGIC: No hives or skin allergy. <Ricky Armstrong - Last Filed: 12/08/17 17:19> *Physical Exam - Vital Signs Last Vital Signs Temp Pulse Resp BP Pulse Ox 99.4 F 93 H 18 134/69 100 12/08/17 15:06 12/08/17 15:06 12/08/17 15:06 12/08/17 15:06 12/08/17 15:06 <Roma Church - Last Filed: 12/08/17 16:59> - Vital Signs Last Vital Signs Temp Pulse Resp BP Pulse Ox 99.4 F 93 H 18 134/69 100 12/08/17 15:06 12/08/17 15:06 12/08/17 15:06 12/08/17 15:06 12/08/17 15:06 - Physical Exam Comments: 12/08/17 17:10 GENERAL: Awake, alert, and fully oriented, in no acute distress HEAD: No signs of trauma LUNGS: Breath sounds equal, clear to auscultation bilaterally. No wheezes, and no crackles HEART: Regular rate and rhythm, normal S1 and S2, no murmurs, rubs or gallops ABDOMEN: +LLQ suprapubic tenderness to palpation. Normoactive bowel sounds. No guarding, no rebound. No masses EXTREMITIES: Normal range of motion, no edema. No clubbing or cyanosis. No cords, erythema, or tenderness NEUROLOGICAL: Cranial nerves II through XII grossly intact. Normal speech, normal gait SKIN: Warm, Dry, normal turgor, no rashes or lesions noted. <Ricky Armstrong - Last Filed: 12/08/17 17:19> ED Treatment Course - LABORATORY CBC & Chemistry Diagram: 12/08/17 16:20 12/08/17 16:20 - ADDITIONAL ORDERS Additional order review: Laboratory Results 12/08/17 16:20 PT with INR 12.10 INR 1.07 PTT (Actin FS) 29.8 12/08/17 16:20 RBC 4.32 MCV 96.2 H MCHC 34.3 RDW 13.1 MPV 8.1 Neutrophils % 85.5 H D Lymphocytes % 9.6 D Monocytes % 4.5 Eosinophils % 0.1 D Basophils % 0.3 - RADIOLOGY Radiology Studies Ordered: Category Date Time Status ABDOMEN & PELVIS CT WITH CONTR [CT] Stat CT Scan 12/08/17 16:57 Ordered CHEST PA & LAT [RAD] Stat Radiology 12/08/17 16:12 Ordered - Medications Given in the ED: ED Medications Discontinued Medications Generic Name Dose Route Start Last Admin Trade Name Freq PRN Reason Stop Dose Admin Ondansetron HCl 4 mg 12/08/17 16:11 12/08/17 16:20 Zofran Injection IVPUSH 12/08/17 16:12 4 mg ONCE ONE Administration Pantoprazole Sodium 40 mg 12/08/17 16:14 12/08/17 16:29 Protonix Iv IVPUSH 12/08/17 16:15 40 mg ONCE ONE Administration Sodium Chloride 1,000 ml 12/08/17 16:12 12/08/17 16:20 Normal Saline - IV 12/08/17 16:13 1,000 ml ONCE ONE Administration <Roma Church - Last Filed: 12/08/17 16:59> - LABORATORY CBC & Chemistry Diagram: 12/08/17 16:20 12/08/17 16:20 - ADDITIONAL ORDERS Additional order review: Laboratory Results 12/08/17 16:20 PT with INR 12.10 INR 1.07 PTT (Actin FS) 29.8 12/08/17 16:20 RBC 4.32 MCV 96.2 H MCHC 34.3 RDW 13.1 MPV 8.1 Neutrophils % 85.5 H D Lymphocytes % 9.6 D Monocytes % 4.5 Eosinophils % 0.1 D Basophils % 0.3 - Medications Given in the ED: ED Medications Discontinued Medications Generic Name Dose Route Start Last Admin Trade Name Noreen PRN Reason Stop Dose Admin Ondansetron HCl 4 mg 12/08/17 16:11 12/08/17 16:20 Zofran Injection IVPUSH 12/08/17 16:12 4 mg ONCE ONE Administration Pantoprazole Sodium 40 mg 12/08/17 16:14 12/08/17 16:29 Protonix Iv IVPUSH 12/08/17 16:15 40 mg ONCE ONE Administration Sodium Chloride 1,000 ml 12/08/17 16:12 12/08/17 16:20 Normal Saline - IV 12/08/17 16:13 1,000 ml ONCE ONE Administration <Ricky Armstrong - Last Filed: 12/08/17 17:19> Medical Decision Making - Medical Decision Making 12/08/17 16:59 37 yo F with h/o prior dvt, prior abd surgery for appy 2016, here with c/o n/v. pt states started at 3am, mutliple episodes vomiting, most recent with hematemesis. no f/c pain severe, generalized. radiating to back. no f/c no urinary complaint . no h/;o sbo, no mod factors. on exam pt awake alert lungs clear bilaterally heart rrr nomrg. llq ttp. suprapubic ttp. no rebound no guarding. differential: sbo, diverticulitis, , ovarian cyst. uti, pyelo plan ct a /p lab ua pain control iv hydration antiemetics. and protonix. <Roma Church - Last Filed: 12/08/17 16:59> *DC/Admit/Observation/Transfer <Roma Church - Last Filed: 12/08/17 16:59> - Attestations Scribe Attestion: 12/08/17 17:16 Documentation prepared by Ricky Armstrong, acting as registered medical assistant for Roma Church MD. <Ricky Armstrong - Last Filed: 12/08/17 17:19> - Referrals Referrals: Simon Jasso [Primary Care Provider] - - Patient Instructions - Post Discharge Activity
[2017-12-08 17:07] LABS: ALBUMIN 4.2 g/dl (3.4-5.0); ANION GAP 11 (8-16); BILIRUBIN,TOTAL 0.4 mg/dL (0.2-1.0); BLOOD UREA NITROGEN 10 mg/dL (7-18); CALCIUM 9.5 mg/dL (8.5-10.1); CHLORIDE 109 mmol/L (98-107); CO2 22 mmol/L (21-32); CREATININE 0.6 mg/dL (0.55-1.02); GLUCOSE,RANDOM 108 mg/dL (74-106); LIPASE 68 U/L (73-393); POTASSIUM 3.9 mmol/L (3.5-5.1); SGOT/AST 18 U/L (15-37); SGPT/ALT 35 U/L (12-78); SODIUM 142 mmol/L (136-145); TOT PROT 7.9 g/dl (6.4-8.2)
[2017-12-08 17:08] LABS: ALK PHOS 79 U/L (45-117)
[2017-12-08] MEDS ORDERED: SODIUM CHLORIDE 0.9% 500 ML INFUS.BAG IV ONE (20:09)
[2017-12-08 20:46] LABS: URINE APPEARANCE SLCLOUDY; URINE BILIRUBIN NEGATIVE (<2.0 mg/dL); URINE COLOR YELLOW; URINE GLUCOSE (UA) NEGATIVE (NEGATIVE); URINE KETONE 1+ (NEGATIVE); URINE LEUK ESTERASE NEGATIVE (NEGATIVE); URINE NITRITE NEGATIVE (NEGATIVE); URINE UROBILINOGEN NEGATIVE mg/dL (0.2-1.0)
[2017-12-08 20:58] LABS: URINE PROTEIN 1+ (NEGATIVE)
[2017-12-08 21:00] LABS: EPI CELLS MODERATE /HPF (FEW); URINE BACTERIA RARE /hpf (NONE SEEN); URINE MUCUS MANY
[2017-12-08 21:21] LABS: COCAINE, UR NEGATIVE ng/ml (CUTOFF=300); METHADONE, UR NEGATIVE ng/ml (CUTOFF=300); OPIATES, URI POSITIVE ng/ml (CUTOFF=300); PHENCYCLIDINE,URINE NEGATIVE ng/ml (CUTOFF=25); URINE AMPHETAMINES NEGATIVE ng/ml (CUTOFF=500); URINE BARBITURATES NEGATIVE ng/ml (CUTOFF=200); URINE BENZODIAZEPINES NEGATIVE ng/ml (CUTOFF=200)
--- NOTE | 2017-12-08 22:10 | PDOC ---
*Physical Exam - Vital Signs Last Vital Signs Temp Pulse Resp BP Pulse Ox 99.4 F 93 H 18 134/69 100 12/08/17 15:06 12/08/17 15:06 12/08/17 15:06 12/08/17 15:06 12/08/17 15:06 - Physical Exam Comments: 12/08/17 22:52 GENERAL: Afebrile. Awake, alert, and fully oriented, in no acute distress HEAD: No signs of trauma NECK: Normal ROM, supple, no lymphadenopathy, JVD, or masses LUNGS: Breath sounds equal, clear to auscultation bilaterally. No wheezes, and no crackles HEART: Regular rate and rhythm, normal S1 and S2, no murmurs, rubs or gallops EXTREMITIES: Normal range of motion, no edema. No clubbing or cyanosis. No cords, erythema, or tenderness NEUROLOGICAL: ANOx3. Cranial nerves II through XII grossly intact. Normal speech, normal gait SKIN: Warm, Dry, normal turgor, no rashes or lesions noted. <Darshan Rivera - Last Filed: 12/08/17 22:52> - Vital Signs Last Vital Signs Temp Pulse Resp BP Pulse Ox 99.4 F 93 H 18 134/69 100 12/08/17 15:06 12/08/17 15:06 12/08/17 15:06 12/08/17 15:06 12/08/17 15:06 <Tamara Carter - Last Filed: 12/09/17 20:04> Heart Score/ECG Review #1 12/08/17 22:11 EKG performed at: 08 December 2017 at 22:11:59 Vent Rate 73 bpm NC interval 112 ms QRS duration 80 ms QT/QTc 408/449 ms P-R-T axes 16 8 7 Normal sinus rhythm Cannot rule out Anterior infarct, age undetermined Abnormal ECG <Darshan Rivera - Last Filed: 12/08/17 22:52> ED Treatment Course - LABORATORY CBC & Chemistry Diagram: 12/08/17 16:20 12/08/17 16:20 - ADDITIONAL ORDERS Additional order review: Laboratory Results 12/08/17 12/08/17 12/08/17 20:35 20:35 20:35 PT with INR INR PTT (Actin FS) Sodium Potassium Chloride Carbon Dioxide Anion Gap BUN Creatinine Creat Clearance w eGFR Random Glucose Calcium Total Bilirubin AST ALT Alkaline Phosphatase Total Protein Albumin Lipase Beta HCG, Quant Urine Color Yellow Urine Appearance Slcloudy Urine pH 6.0 Ur Specific [place] 1.026 Urine Protein 1+ H Urine Glucose (UA) Negative Urine Ketones 1+ H Urine Blood 2+ H Urine Nitrite Negative Urine Bilirubin Negative Urine Urobilinogen Negative Ur Leukocyte Esterase Negative Urine WBC (Auto) 2 Urine RBC (Auto) 40 Ur Epithelial Cells Moderate Urine Bacteria Rare Urine Mucus Many Urine HCG, Qual Negative Opiates Screen Positive Methadone Screen Negative Barbiturate Screen Negative Phencyclidine Screen Negative Ur Amphetamines Screen Negative MDMA (Ecstasy) Screen Negative Benzodiazepines Screen Negative Cocaine Screen Negative U Marijuana (THC) Screen Positive 12/08/17 12/08/17 12/08/17 16:20 16:20 16:20 PT with INR 12.10 INR 1.07 PTT (Actin FS) 29.8 Sodium 142 Potassium 3.9 Chloride 109 H Carbon Dioxide 22 Anion Gap 11 BUN 10 Creatinine 0.6 Creat Clearance w eGFR > 60 Random Glucose 108 H Calcium 9.5 Total Bilirubin 0.4 AST 18 ALT 35 Alkaline Phosphatase 79 Total Protein 7.9 Albumin 4.2 Lipase 68 L Beta HCG, Quant < 1.0 Urine Color Urine Appearance Urine pH Ur Specific [place] Urine Protein Urine Glucose (UA) Urine Ketones Urine Blood Urine Nitrite Urine Bilirubin Urine Urobilinogen Ur Leukocyte Esterase Urine WBC (Auto) Urine RBC (Auto) Ur Epithelial Cells Urine Bacteria Urine Mucus Urine HCG, Qual Opiates Screen Methadone Screen Barbiturate Screen Phencyclidine Screen Ur Amphetamines Screen MDMA (Ecstasy) Screen Benzodiazepines Screen Cocaine Screen U Marijuana (THC) Screen 12/08/17 16:20 RBC 4.32 MCV 96.2 H MCHC 34.3 RDW 13.1 MPV 8.1 Neutrophils % 85.5 H D Lymphocytes % 9.6 D Monocytes % 4.5 Eosinophils % 0.1 D Basophils % 0.3 - Medications Given in the ED: ED Medications Discontinued Medications Generic Name Dose Route Start Last Admin Trade Name Freq PRN Reason Stop Dose Admin Morphine Sulfate 4 mg 12/08/17 16:57 12/08/17 17:09 Morphine Injection - IVPUSH 12/08/17 16:58 4 mg ONCE ONE Administration Morphine Sulfate 4 mg 12/08/17 18:47 12/08/17 19:24 Morphine Injection - IVPUSH 12/08/17 18:48 4 mg ONCE ONE Administration Ondansetron HCl 4 mg 12/08/17 16:11 12/08/17 16:20 Zofran Injection IVPUSH 12/08/17 16:12 4 mg ONCE ONE Administration Ondansetron HCl 4 mg 12/08/17 18:34 12/08/17 18:40 Zofran Injection IVPUSH 12/08/17 18:35 4 mg ONCE ONE Administration Pantoprazole Sodium 40 mg 12/08/17 16:14 12/08/17 16:29 Protonix Iv IVPUSH 12/08/17 16:15 40 mg ONCE ONE Administration Sodium Chloride 1,000 ml 12/08/17 16:12 12/08/17 16:20 Normal Saline - IV 12/08/17 16:13 1,000 ml ONCE ONE Administration Sodium Chloride 1,000 ml 12/08/17 20:09 12/08/17 20:38 Normal Saline - IV 12/08/17 20:10 1,000 ml ONCE ONE Administration <Darshan Rivera - Last Filed: 12/08/17 22:52> - LABORATORY CBC & Chemistry Diagram: 12/08/17 16:20 12/08/17 16:20 - ADDITIONAL ORDERS Additional order review: Laboratory Results 12/08/17 12/08/17 12/08/17 20:35 20:35 20:35 PT with INR INR PTT (Actin FS) Sodium Potassium Chloride Carbon Dioxide Anion Gap BUN Creatinine Creat Clearance w eGFR Random Glucose Calcium Total Bilirubin AST ALT Alkaline Phosphatase Total Protein Albumin Lipase Beta HCG, Quant Urine Color Yellow Urine Appearance Slcloudy Urine pH 6.0 Ur Specific [place] 1.026 Urine Protein 1+ H Urine Glucose (UA) Negative Urine Ketones 1+ H Urine Blood 2+ H Urine Nitrite Negative Urine Bilirubin Negative Urine Urobilinogen Negative Ur Leukocyte Esterase Negative Urine WBC (Auto) 2 Urine RBC (Auto) 40 Ur Epithelial Cells Moderate Urine Bacteria Rare Urine Mucus Many Urine HCG, Qual Negative Opiates Screen Positive Methadone Screen Negative Barbiturate Screen Negative Phencyclidine Screen Negative Ur Amphetamines Screen Negative MDMA (Ecstasy) Screen Negative Benzodiazepines Screen Negative Cocaine Screen Negative U Marijuana (THC) Screen Positive 12/08/17 12/08/17 12/08/17 16:20 16:20 16:20 PT with INR 12.10 INR 1.07 PTT (Actin FS) 29.8 Sodium 142 Potassium 3.9 Chloride 109 H Carbon Dioxide 22 Anion Gap 11 BUN 10 Creatinine 0.6 Creat Clearance w eGFR > 60 Random Glucose 108 H Calcium 9.5 Total Bilirubin 0.4 AST 18 ALT 35 Alkaline Phosphatase 79 Total Protein 7.9 Albumin 4.2 Lipase 68 L Beta HCG, Quant < 1.0 Urine Color Urine Appearance Urine pH Ur Specific [place] Urine Protein Urine Glucose (UA) Urine Ketones Urine Blood Urine Nitrite Urine Bilirubin Urine Urobilinogen Ur Leukocyte Esterase Urine WBC (Auto) Urine RBC (Auto) Ur Epithelial Cells Urine Bacteria Urine Mucus Urine HCG, Qual Opiates Screen Methadone Screen Barbiturate Screen Phencyclidine Screen Ur Amphetamines Screen MDMA (Ecstasy) Screen Benzodiazepines Screen Cocaine Screen U Marijuana (THC) Screen 12/08/17 16:20 RBC 4.32 MCV 96.2 H MCHC 34.3 RDW 13.1 MPV 8.1 Neutrophils % 85.5 H D Lymphocytes % 9.6 D Monocytes % 4.5 Eosinophils % 0.1 D Basophils % 0.3 - Medications Given in the ED: ED Medications Discontinued Medications Generic Name Dose Route Start Last Admin Trade Name Freq PRN Reason Stop Dose Admin Morphine Sulfate 4 mg 12/08/17 16:57 12/08/17 17:09 Morphine Injection - IVPUSH 12/08/17 16:58 4 mg ONCE ONE Administration Morphine Sulfate 4 mg 12/08/17 18:47 12/08/17 19:24 Morphine Injection - IVPUSH 12/08/17 18:48 4 mg ONCE ONE Administration Ondansetron HCl 4 mg 12/08/17 16:11 12/08/17 16:20 Zofran Injection IVPUSH 12/08/17 16:12 4 mg ONCE ONE Administration Ondansetron HCl 4 mg 12/08/17 18:34 12/08/17 18:40 Zofran Injection IVPUSH 12/08/17 18:35 4 mg ONCE ONE Administration Pantoprazole Sodium 40 mg 12/08/17 16:14 12/08/17 16:29 Protonix Iv IVPUSH 12/08/17 16:15 40 mg ONCE ONE Administration Sodium Chloride 1,000 ml 12/08/17 16:12 12/08/17 16:20 Normal Saline - IV 12/08/17 16:13 1,000 ml ONCE ONE Administration Sodium Chloride 1,000 ml 12/08/17 20:09 12/08/17 20:38 Normal Saline - IV 12/08/17 20:10 1,000 ml ONCE ONE Administration <Tamara Carter - Last Filed: 12/09/17 20:04> Medical Decision Making - Medical Decision Making 12/08/17 22:52 Pt is refusing CXR; she has normal labs and UA. CT scan result is still pending. 12/08/17 23:41 Patient Name: IVAN FREY THIS IS A PRELIMINARY REPORT FROM [facility] DATE OF SERVICE: 2017-12-08 21:47:09 IMAGES: [id number] EXAM: CT abdomen and pelvis with IV contrast. Clinical indication: Abdominal pain and vomiting. Comparison is made to the prior study dated 11/15/2016. Technique: Axial IV contrast-enhanced CT images of the abdomen and pelvis were obtained followed by coronal and sagittal reformats. Findings: The visualized portions of the lower thorax are within normal limits. There is no free intra-abdominal gas. There is a trace of free fluid within the posterior cul-de-sac. There's been a prior cholecystectomy. The liver, adrenals, pancreas, and spleen are normal. There is no hydronephrosis or renal calculi bilaterally. The bilateral kidneys are normal. There are no enlarged abdominal or pelvic lymph nodes, by size criteria. The pelvic organs are grossly unremarkable, given the limitations of CT for evaluating them. There is been a prior appendectomy. The remainder of the bowel is unremarkable. Visualized bony structures are unremarkable for the patient's age. Impression: Unremarkable CT of the abdomen and pelvis. Individualized dose optimization techniques were used for this CT. THIS DOCUMENT HAS BEEN ELECTRONICALLY SIGNED 12/09/17 20:04 Pt will be discharged home. Labs exam and CT scan normal. <Tamara Carter - Last Filed: 12/09/17 20:04> *DC/Admit/Observation/Transfer - Attestations Scribe Attestion: 12/08/17 22:14 Documentation prepared by Darshan Rivera, acting as medical office scheduler for Tamara Carter MD. <Darshan Rivera - Last Filed: 12/08/17 22:52> - Discharge Dispostion Decision to Admit order: No <Tamara Carter - Last Filed: 12/09/17 20:04> Diagnosis at time of Disposition: Abdominal pain - Discharge Dispostion Disposition: HOME Condition at time of disposition: Stable - Referrals Referrals: Simon Jasso [Primary Care Provider] - - Patient Instructions Printed Discharge Instructions: DI for Abdominal Pain-Adult - Post Discharge Activity
[2017-12-08] MEDS ORDERED: traMADol HCL 50 MG TABLET PO ONE (22:43)
[2017-12-08] MEDS ORDERED: METOCLOPRAMIDE HCL INJECTION 10 MG/2 ML VIAL IVPUSH ONE (22:43)
[2017-12-08] MEDS ORDERED: METOCLOPRAMIDE HCL INJECTION 10 MG/2 ML VIAL ONE (22:56)
[2017-12-08] MEDS ORDERED: traMADol HCL 50 MG TABLET ONE (22:57)
[2017-12-09 01:13] VITALS: BP 151/87; PULSE 85; TEMP 99.3
--- NOTE | 2017-12-09 14:24 | PDOC ---
Patient Follow-up (Call Back) - Post ED Follow - Up Chief Complaint: Pain Condition at time of discharge: Stable Disposition at time of original discharge: HOME Reason for Call Back: Radiology (abd cat scan cant rule out colitis, change from [facility] reading as negative per ) Signs/Symptoms Improved: Yes - Disposition Additional Instructions/Notes: called pt to discuss no answer on cell or home. spoke to pt today she talked with Joy Luna yesterday antibiotics sent to the pharmacy I confirmed Carol has the meds ready for her , I told pt she needs to get those meds today.
--- NOTE | 2017-12-12 16:28 | EKG ---
Test Reason : Blood Pressure : / mmHG Vent. Rate : 073 BPM Atrial Rate : 073 BPM P-R Int : 112 ms QRS Dur : 080 ms QT Int : 408 ms P-R-T Axes : 016 008 007 degrees QTc Int : 449 ms NORMAL SINUS RHYTHM CANNOT RULE OUT ANTERIOR INFARCT , AGE UNDETERMINED ABNORMAL ECG WHEN COMPARED WITH ECG OF 14-NOV-2016 23:26, NO SIGNIFICANT CHANGE WAS FOUND Confirmed by Surendra Wang MD ([id number]) on 12/12/2017 4:27:58 PM Referred By: Confirmed By:Surendra Wang MD
== END 2017-12-09 00:09 | disposition home or self-care (01) ==
LOC: JER 14:57
PROC: 3E033GC Introduction of Other Therapeutic Substance into Peripheral Vein, Percutaneous Approach (ICD-10-PCS; principal; 2017-12-08)
PROC: 3E033NZ Introduction of Analgesics, Hypnotics, Sedatives into Peripheral Vein, Percutaneous Approach (ICD-10-PCS; 2017-12-08)
PROC: 3E0337Z Introduction of Electrolytic and Water Balance Substance into Peripheral Vein, Percutaneous Approach (ICD-10-PCS; 2017-12-08)
DX: R10.9 Unspecified abdominal pain (principal); Z86.718 Personal history of other venous thrombosis and embolism; J45.909 Unspecified asthma, uncomplicated; Z87.891 Personal history of nicotine dependence
CPT/HCPCS: 36415; 74177-TC; 80053; 80307; 81003; 81015; 83690; 84702; 84703; 85025; 85610; 85730; 93005; 93010; 99282-25; J7030

== ENCOUNTER 2018-08-03 06:15 | Emergency (ER) | payer OTHER ==
[2018-08-03 06:28] VITALS: BMI 29.2
--- NOTE | 2018-08-03 07:22 | PDOC ---
History of Present Illness - History of Present Illness Initial Comments: Alis Burden is a 38yo woman with a PMH of DVT (no longer on anticoagulation) , GERD, asthma, s/p appendectomy and cholecystectomy, and chronic RLE pain who presents with 2 days of diffuse abdominal pain, nausea and vomiting. She states that she tried a medication at home without improvement, but she is not sure what it was. She states that she has been unable to eat or drink anything for two days because "it comes right back up." She also reports an episode of watery diarrhea this morning but denies any previously. Ms Burden is a poor historian and declines to answer any additional questions, reporting only that she feels very weak and has chronic RLE pain. <Gwen Gallardo - Last Filed: 08/03/18 12:38> <Jessica Castro - Last Filed: 08/03/18 12:57> - General Chief Complaint: Nausea/Vomiting Stated Complaint: ABD PAIN Time Seen by Provider: 08/03/18 07:10 Past History - Past Medical History Asthma: Yes COPD: No DVT: Yes Other medical history: GERD - Surgical History Abdominal Surgery: Yes Cholecystectomy: Yes - Immunization History Immunization Up to Date: Yes - Suicide/Smoking/Psychosocial Hx Smoking Status: No Smoking History: Never smoked Have you smoked in the past 12 months: No Number of Cigarettes Smoked Daily: 10 If you are a former smoker, when did you quit?: 3 Cigars Per Day: 0 Information on smoking cessation initiated: No 'Breaking Loose' booklet given: 09/20/16 Hx Alcohol Use: Yes Drug/Substance Use Hx: No Substance Use Type: None Hx Substance Use Treatment: No <Gwen Gallardo - Last Filed: 08/03/18 12:38> <Jessica Castro - Last Filed: 08/03/18 12:57> - Past Medical History Allergies/Adverse Reactions: Allergies Allergy/AdvReac Type Severity Reaction Status Date / Time ibuprofen Allergy Nausea Verified 12/08/17 15:10 acetaminophen [From Vicodin] AdvReac Verified 12/08/17 15:10 hydrocodone bitartrate AdvReac Verified 12/08/17 16:35 [From Vicodin] Home Medications: Ambulatory Orders Ciprofloxacin [Cipro -] 500 mg PO Q12H 7 Days #14 tablet 08/03/18 Metronidazole 500 mg PO Q8H 7 Days #21 tablet 08/03/18 Ondansetron [Zofran Odt -] 4 mg SL TID PRN #9 od.tablet 08/03/18 Rivaroxaban [Xarelto] 20 mg PO BID 08/03/18 Review of Systems - Review of Systems Comments:: 08/03/18 08:23 Declined to answer <Gwen Gallardo - Last Filed: 08/03/18 12:38> *Physical Exam - Vital Signs Last Vital Signs Temp Pulse Resp BP Pulse Ox 98.8 F 90 20 134/69 97 08/03/18 06:24 08/03/18 06:24 08/03/18 06:24 08/03/18 06:24 08/03/18 06:24 - Physical Exam Comments: General: In no acute distress HEENT: PERRL, EOMI, MMM, voice normal, normal neck ROM Cards: RRR, no murmur appreciated Pulm: Comfortable on room air, clear to auscultation bilaterally on anterior and lateral exam Abd: Soft, nondistended. Mild diffuse TTP Ext: Atraumatic. No LE edema. No calf tenderness. ROM intact. RLE with distal skin changes c/w venous stasis, several small ulcerations w/ clean base and no surrounding erythema/edema or drainage. Vasc: Extremities WWP Skin: Normal color, no rashes. Skin changes on RLE as above Neuro: A&Ox3, CN grossly intact, normal speech, motor/sensory grossly intact and symmetric Psych: Mood appropriate to situation <Gwen Gallardo - Last Filed: 08/03/18 12:38> - Vital Signs Last Vital Signs Temp Pulse Resp BP Pulse Ox 97.9 F 70 16 151/74 98 08/03/18 11:00 08/03/18 11:00 08/03/18 11:00 08/03/18 11:00 08/03/18 11:00 <Jessica Castro - Last Filed: 08/03/18 12:57> ED Treatment Course - LABORATORY CBC & Chemistry Diagram: 08/03/18 07:59 08/03/18 07:57 <Gwen Gallardo - Last Filed: 08/03/18 12:38> - LABORATORY CBC & Chemistry Diagram: 08/03/18 07:59 08/03/18 07:57 - ADDITIONAL ORDERS Additional order review: Laboratory Results 08/03/18 08/03/18 08/03/18 08:24 07:59 07:57 Sodium 136 Potassium 4.2 Chloride 98 Carbon Dioxide 24 Anion Gap 13 BUN 16 Creatinine 0.7 Creat Clearance w eGFR 94.68 Random Glucose 100 Calcium 8.9 Phosphorus 3.2 Magnesium 3.1 H Total Bilirubin 1.0 AST 29 ALT 30 Alkaline Phosphatase 93 Total Protein 8.5 H Albumin 4.5 Serum , Qual Negative Urine Color Yellow Urine Appearance Clear Urine pH 5.5 Ur Specific Ballard 1.037 H Urine Protein 1+ H Urine Glucose (UA) Negative Urine Ketones 4+ H Urine Blood 2+ H Urine Nitrite Negative Urine Bilirubin Negative Urine Urobilinogen 1.0 Ur Leukocyte Esterase Negative Urine WBC (Auto) 2 Urine RBC (Auto) 6 Urine Casts (Auto) 5 U Epithel Cells (Auto) 2.4 Urine Bacteria (Auto) 47.1 08/03/18 07:59 RBC 4.58 MCV 97.8 H MCHC 33.6 RDW 13.3 MPV 7.9 Neutrophils % 80.0 Lymphocytes % 12.9 D Monocytes % 6.7 Eosinophils % 0.1 Basophils % 0.3 - Medications Given in the ED: ED Medications Discontinued Medications Generic Name Dose Route Start Last Admin Trade Name Noreen PRN Reason Stop Dose Admin Acetaminophen 1,000 mg 08/03/18 09:00 08/03/18 11:24 Ofirmev Injection - IVPB 08/03/18 09:01 1,000 mg ONCE ONE Administration Ciprofloxacin 500 mg 08/03/18 10:51 08/03/18 12:17 Cipro (Restricted To Id) PO 08/03/18 10:52 500 mg ONCE ONE Administration Famotidine/Sodium Chloride 20 mg in 50 mls @ 100 mls/hr 08/03/18 07:24 08:00 Pepcid 20 Mg Premixed Ivpb - IVPB 08/03/18 07:53 100 mls/hr ONCE ONE Administration Metoclopramide HCl 10 mg 08/03/18 09:34 08/03/18 11:24 Reglan Injection - IVPUSH 08/03/18 09:35 10 mg ONCE ONE Administration Metronidazole 500 mg 08/03/18 10:51 08/03/18 11:24 Flagyl - PO 08/03/18 10:52 500 mg ONCE ONE Administration Ondansetron HCl 4 mg 08/03/18 07:28 08/03/18 08:55 Zofran Injection IVPUSH 08/03/18 07:29 4 mg ONCE ONE Administration Sodium Chloride 1,000 ml 08/03/18 07:25 08/03/18 08:00 Normal Saline - IV 08/03/18 07:26 1,000 ml ONCE ONE Administration Sodium Chloride 1,000 ml 08/03/18 10:50 08/03/18 11:24 Normal Saline - IV 08/03/18 10:51 1,000 ml ONCE ONE Administration <Jessica Castro - Last Filed: 08/03/18 12:57> Medical Decision Making - Medical Decision Making 08/03/18 07:14 Alis Burden is a 38yo woman with a PMH of DVT (no longer on anticoagulation) , GERD, asthma, s/p appendectomy and cholecystectomy, and chronic RLE pain who presents with 2 days of diffuse abdominal pain, nausea and vomiting as well as an episode of watery diarrhea today. She has no fever/chills, cough, chest pain , or other associated symptoms. - Ddx includes GERD/gastritis, gastroenteritis. Less likely pancreatitis. No flank pain or urinary symptoms suggesting stone or UTI. - Famotidine, zofran, IVF bolus for symptoms - CBC, CMP, mag, phos, UA, serum preg 08/03/18 08:16 - Pt observed ambulating throughout the ED without any distress - Requesting pain medication for RLE pain. Will order acetaminophen 08/03/18 09:04 - Labs reviewed. Notable for leukocytosis to 19. Reviewed previous labs, has never been as high - CT abd/pelvis ordered for evaluation 08/03/18 11:35 - CT indicates colitis in the descending colon - Following discussion with Dr Castro, will start cipro/flagyl in the ED - Ms Burden feels somewhat improved after IV acetaminophen and antiemetics. Will PO challenge 08/03/18 12:39 - Able to drink water in the ED without any vomiting - Will d/c home. Discussed home care, follow up, return precautions. Ms Burden states understanding and agreement. Discussed with Dr Castro. Gwen Gallardo PGY1 <Gwen Gallardo - Last Filed: 08/03/18 12:38> *DC/Admit/Observation/Transfer - Discharge Dispostion Decision to Admit order: No <Gwen Gallardo - Last Filed: 08/03/18 12:38> <Jessica Castro - Last Filed: 08/03/18 12:57> Diagnosis at time of Disposition: Colitis - Discharge Dispostion Disposition: HOME Condition at time of disposition: Stable - Prescriptions Prescriptions: Ciprofloxacin [Cipro -] 500 mg PO Q12H 7 Days #14 tablet Metronidazole 500 mg PO Q8H 7 Days #21 tablet Ondansetron [Zofran Odt -] 4 mg SL TID PRN #9 od.tablet PRN Reason: Nausea And/Or Vomiting - Referrals Referrals: Simon Jasso [Primary Care Provider] - Mandeep Lamb MD [Non Staff, Medical] - - Patient Instructions Printed Discharge Instructions: DI for Colitis Additional Instructions: Discharge Instructions: You were seen in the ED for abdominal pain, vomiting, and diarrhea. You were given medications for nausea, pain, and stomach acid with improvement in your symptoms. You had a CT scan showing colitis and were started on an antibiotic. Home Care and Follow Up: - Continue to take all your regular home medications as prescribed - You have been prescribed two antibiotics. One should be taken every 8 hours, and the other should be every 12 hours. Both are for 7 days. Please complete both antibiotics. Do not stop taking them early, even if you start to feel better, as your symptoms could return. It is very important to complete the entire prescription. - Make sure you are drinking plenty of fluids. It is OK if you are not hungry as long as you stay hydrated. For the next 24 hours, you may wish to avoid solid foods. When you start eating again, start with small meals of easy to eat foods such as rice or bananas. Avoid spicy foods, dairy products, caffeine, alcohol, and oily/greasy foods. Drinking small amounts throughout the day works better than drinking a large glass all at once. - You indicated that you are not taking any anti-acid medication at home. It is recommended that you buy a medication over the counter such as Pepcid, Xantac, Prilosec, or Prevacid to take every day until you are able to see your regular doctor. - Make an appointment to see your regular doctor early next week, within the next 3-4 days, for follow up. - You have been referred to Dr Lamb in wound clinic for your right leg wounds. Make an appointment to see him within the next 1-2 weeks. - Seek immediate medical care if you have worsening symptoms, you become dehydrated (feel dry, stop urinating), you have blood in your stool, you have chest pain or shortness of breath, or you have any other medical emergency. - Post Discharge Activity Forms/Work/School Notes: Back to Work
[2018-08-03] MEDS ORDERED: FAMOTIDINE 20 MG/50 ML IVPB 20 MG/50 ML MG IVPB ONE ×2 (07:24→07:36)
[2018-08-03] MEDS ORDERED: SODIUM CHLORIDE 0.9% 500 ML INFUS.BAG IV ONE ×2 (07:25→10:50)
[2018-08-03] MEDS ORDERED: ONDANSETRON 4 MG/2 ML VIAL IVPUSH ONE (07:28)
--- NOTE | 2018-08-03 07:32 | PDOC ---
Attending Attestation - Resident Resident Name: SamiGwen - ED Attending Attestation I have performed the following: I have examined & evaluated the patient, The case was reviewed & discussed with the resident, I agree w/resident's findings & plan - HPI HPI: 08/03/18 09:45 38 YOF with h/o provoked DVT after surgery off AC, chronic LE venous stasis ulcers presenting with generalized weakness, diffuse abdominal pain, n/v/d x 2 days. No respiratory sx. No travel or suspicoius food intake. - Physicial Exam PE: 08/03/18 09:45 NAD, PERRL, EOMI, MMM, nl conjunctiva, anicteric; neck supple. lungs clear, RRR , abdomen soft diffusely tender, no CVAT, no rebound or guarding. ALVARADO x4, No peripheral edema. normal color for ethnicity, WWP. +RLE with chronic venous stasis changes and very superficial ulcers, no purulence, no erythema or warmth. no calf tenderness - Medical Decision Making 08/03/18 07:30 See HPI for details Vital signs reviewed, wnl. DDx abdominal pain: Renal colic, biliary colic, metabolic/electrolyte derangements. GERD, PUD, esophageal spasm, pancreatitis, hepatitis, food poisoning, colitis, gastroenteritis, medication side effect, hernia s/p appendectomy and cholecystectomy, so doubt etiology. most likely colitis vs AGE. Prior notes reviewed, including admissions, discharges and consultations. laboratory results and imaging reviewed, basic labs and lytes wnl, notable for + leukocytosis of 19K, higher than prior. LFTs normal UA preg test neg ED course - given IVF, zofran, pepcid, reassess. additional analgesia and antiemetics ambulatory in the department. no acute events. has home oxycodone for pain control, can take tylenol as needed. CT a/p: acute lower colitis noted, no other abdominal pathology or obstruction/ perf. abx cipro/flagyl x 1 week course, for colitis, diet modifications, adv as tolerated. Dispo: Pt informed of my clinical impression, treatment recommendations and disposition plan. All questions answered to patient's satisfaction and expressed understanding and comfort with this. Reasons for returning to the ED sooner discussed with the patient otherwise, follow up with primary care physician. At the time of discharge, the patient is alert, clinically improved, tolerating po and verbalizes understanding of instructions. Patient does not suffer from an acute life-threatening medical condition at this time she is safe for outpatient follow-up. 08/03/18 09:46 08/03/18 12:49
[2018-08-03] MEDS ORDERED: ACETAMINOPHEN 325 MG TABLET (FP) ONE (07:40)
[2018-08-03 08:28] LABS: BASO % 0.3 % (0-2.0); EOS % 0.1 % (0-4.5); HEMATOCRIT 44.8 % (32.4-45.2); LYMPH % 12.9 % (8-40); MCH 32.8 pg (25.7-33.7); MCHC 33.6 g/dl (32.0-36.0); MEAN CELL VOLUME 97.8 fl (80-96); MEAN PLT VOLUME 7.9 fl (7.5-11.1); MONO % 6.7 % (3.8-10.2); PLATELET COUNT 436 K/MM3 (134-434); RBC 4.58 M/mm3 (3.60-5.2); RDW 13.3 % (11.6-15.6)
[2018-08-03 08:45] LABS: ALBUMIN 4.5 g/dl (3.4-5.0); ALK PHOS 93 U/L (45-117); ANION GAP 13 MMOL/L (8-16); BLOOD UREA NITROGEN 16 mg/dL (7-18); CALCIUM 8.9 mg/dL (8.5-10.1); CHLORIDE 98 mmol/L (98-107); CO2 24 mmol/L (21-32); CREATININE 0.7 mg/dL (0.55-1.3); GLUCOSE,RANDOM 100 mg/dL (74-106); MAGNESIUM 3.1 mg/dL (1.8-2.4); PHOSPHOROUS 3.2 mg/dL (2.5-4.9); POTASSIUM 4.2 mmol/L (3.5-5.1); SGOT/AST 29 U/L (15-37); SGPT/ALT 30 U/L (13-61); SODIUM 136 mmol/L (136-145); TOT PROT 8.5 g/dl (6.4-8.2)
[2018-08-03] MEDS ORDERED: ACETAMINOPHEN 1000 MG/100 ML VIAL (NON FORMULARY) IVPB ONE (09:00)
[2018-08-03] MEDS ORDERED: METOCLOPRAMIDE HCL INJECTION 10 MG/2 ML VIAL IVPUSH ONE (09:34)
[2018-08-03 09:48] LABS: EPI CELLS 2.4 /HPF (0-5); HYALINE CASTS 5 /hpf (0-8); PH,URINE 5.5 (5.0-8.0); URINE APPEARANCE CLEAR; URINE BACTERIA 47.1 /hpf (NEGATIVE); URINE BILIRUBIN NEGATIVE (NEGATIVE); URINE COLOR YELLOW; URINE GLUCOSE (UA) NEGATIVE (NEGATIVE); URINE KETONE 4+ (NEGATIVE); URINE LEUK ESTERASE NEGATIVE (NEGATIVE); URINE NITRITE NEGATIVE (NEGATIVE); URINE PROTEIN 1+ (NEGATIVE); URINE RBC 6 /hpf (0-4); URINE WBC 2 /hpf (0-5)
[2018-08-03] MEDS ORDERED: CIPROFLOXACIN 500 MG TABLET (RESTRICTED TO ID) PO ONE (10:51)
[2018-08-03] MEDS ORDERED: metroNIDAZOLE 500 MG TABLET PO ONE (10:51)
[2018-08-03] MEDS ORDERED: metroNIDAZOLE 250 MG TABLET ONE (11:06)
[2018-08-03] MEDS ORDERED: ACETAMINOPHEN INJECTION 100 ML IVPB ONE (11:06)
[2018-08-03] MEDS ORDERED: METOCLOPRAMIDE HCL INJECTION 10 MG/2 ML VIAL ONE (11:06)
[2018-08-03 11:27] VITALS: BP 151/74; PULSE 70; TEMP 97.9
== END 2018-08-03 12:50 | disposition home or self-care (01) ==
LOC: JER 06:15
PROC: 3E0337Z Introduction of Electrolytic and Water Balance Substance into Peripheral Vein, Percutaneous Approach (ICD-10-PCS; principal; 2018-08-03)
PROC: 3E033NZ Introduction of Analgesics, Hypnotics, Sedatives into Peripheral Vein, Percutaneous Approach (ICD-10-PCS; 2018-08-03)
PROC: 3E033GC Introduction of Other Therapeutic Substance into Peripheral Vein, Percutaneous Approach (ICD-10-PCS; 2018-08-03)
DX: K52.9 Noninfective gastroenteritis and colitis, unspecified (principal); Z87.891 Personal history of nicotine dependence; J45.909 Unspecified asthma, uncomplicated
CPT/HCPCS: 36415; 74177-TC; 80053; 81003; 83735; 84100; 84703; 85025; 96365; 96375; 99283-25; J0131

== ENCOUNTER 2019-06-10 12:01 | Emergency (ER) | payer OTHER ==
[2019-06-10 12:16] VITALS: BP 125/76; PULSE 84; TEMP 98.3; BMI 25.7
--- NOTE | 2019-06-10 12:23 | PDOC ---
History of Present Illness - General Chief Complaint: Injury Stated Complaint: INJURY TO RIGHT HAND Time Seen by Provider: 06/10/19 12:08 History Source: Patient Exam Limitations: No Limitations - History of Present Illness Initial Comments: 06/10/19 12:23 Alis Burden is a 38F with PMH SLE on gabapentin and RLE DVT s/p 6 month course of Xarelto presenting with fall onto right hand with pain and warmth. One week ago patient tripped in her garage and fell onto the concrete, scraping the back of her hand along the ground resulting in multiple excoriation wounds. Denies chest pain, SOB, palpitations, dizziness prior to fall, denies LOC or head trauma during fall. Since then has had pain and swelling to hand extending up to mid forearm, worse with movement, also some weakness, numbness and electric tingling down middle and pinky fingers. Has had some pustular discharge along one of the wounds. Otherwise denies fever/chills, nausea/ vomiting. No allergies. No prior surgeries to hand. Denies alcohol/tobacco/drugs. Past History - Past Medical History Allergies/Adverse Reactions: Allergies Allergy/AdvReac Type Severity Reaction Status Date / Time acetaminophen [From Vicodin] AdvReac Mild Verified 06/10/19 15:13 ibuprofen AdvReac Mild Nausea Verified 06/10/19 15:13 hydrocodone bitartrate AdvReac Verified 06/10/19 12:04 [From Vicodin] Home Medications: Ambulatory Orders Clindamycin [Cleocin -] 300 mg PO TID #21 capsule 06/10/19 Asthma: Yes COPD: No DVT: Yes Other medical history: LUPUS - Surgical History Abdominal Surgery: Yes Appendectomy: Yes Cholecystectomy: Yes - Immunization History Immunization Up to Date: Yes - Psycho Social/Smoking Cessation Hx Smoking Status: No Smoking History: Current every day smoker Have you smoked in the past 12 months: No Number of Cigarettes Smoked Daily: 6 If you are a former smoker, when did you quit?: 3 Cigars Per Day: 0 Information on smoking cessation initiated: Yes 'Breaking Loose' booklet given: 09/20/16 Hx Alcohol Use: No Drug/Substance Use Hx: No Substance Use Type: None Hx Substance Use Treatment: No Review of Systems - Review of Systems Able to Perform ROS?: Yes Constitutional: No: Chills, Fever HEENTM: No: Symptoms Reported Respiratory: No: Symptoms reported Cardiac (ROS): No: Symptoms Reported ABD/GI: No: Constipated, Diarrhea, Nausea, Poor Appetite, Poor Fluid Intake, Vomiting : No: Symptoms Reported Musculoskeletal: No: Back Pain Integumentary: Yes: Lesions Neurological: Yes: Numbness, Weakness. No: Headache, Seizure, Unsteady Gait, Ataxia Endocrine: No: Symptoms Reported Hematologic/Lymphatic: Yes: Blood Clots All Other Systems: Reviewed and Negative *Physical Exam - Vital Signs Last Vital Signs Temp Pulse Resp BP Pulse Ox 98.3 F 84 18 125/76 100 06/10/19 12:06/10/19 12:06/10/19 12:06/10/19 12:06/10/19 12:03 - Physical Exam General Appearance: Yes: Nourished, Appropriately Dressed. No: Apparent Distress HEENT: positive: EOMI, MICHAEL, Normal ENT Inspection, Normal Voice, Symmetrical, Pharynx Normal, Other (NCAT, no evidence of head injury). negative: Scleral Icterus (R), Scleral Icterus (L), Pharyngeal Erythema, Tonsillar Exudate, Tonsillar Erythema, Hearing Decreased Neck: positive: Trachea midline, Normal Thyroid, Supple. negative: Tender, Rigid, Lymphadenopathy (R), Lymphadenopathy (L), Tender lateral, Tender midline Respiratory/Chest: positive: Lungs Clear, Normal Breath Sounds. negative: Chest Tender, Respiratory Distress, Accessory Muscle Use, Crackles, Rales, Rhonchi, Stridor, Wheezing Cardiovascular: positive: Regular Rhythm, Regular Rate. negative: Murmur Gastrointestinal/Abdominal: positive: Normal Bowel Sounds, Flat, Soft. negative : Tender, Organomegaly, Pulsatile Mass, Guarding, Rebound Musculoskeletal: positive: Normal Inspection. negative: CVA Tenderness, Decreased Range of Motion, Vertebral Tenderness Extremity: positive: Normal Capillary Refill, Pelvis Stable, Other (no R hand pinpoint tenderness or deformities, no snuffbox tenderness). 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 Has full ROM passively to all joints, cap refill <2sec all fingers, able to move all fingers spontaneously but limited by pain, no pinpoint tenderness or snuffbox tenderness, no deformity. Presentation consistent with cellulitis without other significant pathology, no systemic symptoms. - XR hand and wrist for eval fracture after fall - Motrin for pain - clindamycin for likely cellulitis 06/10/19 14:48 XR shows no evidence of fracture or osteo. Will discharge with splint, RICE instructions, and clinda script. Discharge - Discharge Information Problems reviewed: Yes Clinical Impression/Diagnosis: Right hand pain Cellulitis Qualifiers: Site of cellulitis: extremity Site of cellulitis of extremity: upper extremity Laterality: right Qualified Code(s): L03.113 - Cellulitis of right upper limb Condition: Stable - Admission No - Additional Discharge Information Prescriptions: Clindamycin [Cleocin -] 300 mg PO TID #21 capsule - Follow up/Referral Referrals: Simon Jasso [Primary Care Provider] - - Patient Discharge Instructions Patient Printed Discharge Instructions: DI for Cellulitis -- Adult, How To Perform RICE (Rest, Ice, Compress, Elevate) Additional Instructions: Today you were evaluated for pain in your hand after a fall. Your x-rays do not show any fractures. Your hand is warm and painful and this is consistent with cellulitis. We are prescribing you some antibiotics to combat this infection, and have splinted your hand to promote healing. At home, please rest the hand, apply ice, and take Motrin as needed for pain. The infection should improve over the next week. Follow-up with your primary doctor in the next week for further care. If you experience worsening pain, discharge from the wound, have numbness in your hand constantly, or have any other new or concerning symptoms, please return to the emergency room. - Post Discharge Activity
--- NOTE | 2019-06-10 12:24 | PDOC ---
Attending Attestation - Resident Resident Name: Kody Castillo - ED Attending Attestation I have performed the following: I have examined & evaluated the patient, The case was reviewed & discussed with the resident, I agree w/resident's findings & plan, Exceptions are as noted - HPI HPI: 06/10/19 16:17 Pain and increased swelling left hand 2 days subsequent to skin injury incurred by a fall. Pain on the dorsum of the hand over the second and third metacarpals , at the site of abrasions.. - Physicial Exam PE: 06/10/19 16:18 Afebrile, vital signs normal Healing abrasions over the dorsum of the left hand, with surrounding erythema and tenderness. There is swelling and mild edema at the site of the abrasions. There is no purulent drainage and no fluctuance. There is minimal pain with extension and flexion. And no distal sensory or motor deficits. Tendon function is intact. Pulses are full. Capillary refill preserved - Medical Decision Making 06/10/19 16:19 Assessment: Infected abrasions dorsum of the left hand. No sign of extensive deep tissue infection, tendon, nerve, or vessel dysfunction Plan: Rest and elevation. Volar splint applied for immobilization. Oral antibiotics. Return to ER if symptoms worsen, otherwise follow-up primary physician as directed. Fully ambulatory and in no significant pain or other distress at discharge with family to follow-up as directed
[2019-06-10] MEDS ORDERED: CLINDAMYCIN HCL 300 MG CAPSULE PO ONE (15:15)
[2019-06-10] MEDS ORDERED: ACETAMINOPHEN 325 MG TABLET (FP) PO ONE (15:15)
[2019-06-10] MEDS ORDERED: ACETAMINOPHEN 325 MG TABLET (FP) ONE (15:18)
[2019-06-10] MEDS ORDERED: CLINDAMYCIN HCL 150 MG CAPSULE (FP) ONE (15:18)
== END 2019-06-10 15:28 | disposition home or self-care (01) ==
LOC: FER 12:01
DX: L03.113 Cellulitis of right upper limb (principal); Z88.8 Allergy status to other drugs, medicaments and biological substances
CPT/HCPCS: 73110-TC-RT-FY; 73130-TC-RT-FY; 99282-25

== ENCOUNTER 2020-11-05 08:47 | Emergency (ER) | payer OTHER ==
[2020-11-05 09:18] VITALS: TEMP 97.7; BMI 36.0
[2020-11-05 09:40] LABS: BASO % 0.9 % (0-2.0); EOS % 1.1 % (0-4.5); HEMATOCRIT 40.6 % (32.4-45.2); HEMOGLOBIN 13.8 GM/dL (10.7-15.3); LYMPH % 25.1 % (8-40); MCHC 34.1 g/dl (32.0-36.0); MEAN CELL VOLUME 93.8 fl (80-96); MEAN PLT VOLUME 7.5 fl (7.5-11.1); MONO % 5.5 % (3.8-10.2); NEUT % 67.4 % (42.8-82.8); PLATELET COUNT 376 10^3/uL (134-434); RBC 4.32 M/mm3 (3.60-5.2); RDW 13.6 % (11.6-15.6); WHITE BLOOD COUNT 13.4 K/mm3 (4.0-10.0)
[2020-11-05 10:02] LABS: CALCIUM 8.9 mg/dL (8.5-10.1)
[2020-11-05 10:03] LABS: ALBUMIN 3.8 g/dl (3.4-5.0); BLOOD UREA NITROGEN 13.4 mg/dL (7-18)
[2020-11-05 10:06] LABS: CREATININE 0.5 mg/dL (0.55-1.3)
[2020-11-05 10:08] LABS: BILIRUBIN,TOTAL 0.4 mg/dL (0.2-1); TOT PROT 7.5 g/dl (6.4-8.2)
[2020-11-05] MEDS ORDERED: ONDANSETRON 4 MG/2 ML VIAL IVPUSH ONE (10:10)
[2020-11-05] MEDS ORDERED: LACTATED RINGERS SOLUTION 1000 ML INFUS.BAG IV ONE (10:20)
[2020-11-05] MEDS ORDERED: ONDANSETRON 4 MG/2 ML VIAL ONE (10:20)
[2020-11-05 10:32] LABS: ANISOCYTOSIS 0; MACROCYTOSIS 0; PLATELET ESTIMATE NORMAL
[2020-11-05 10:33] LABS: MAGNESIUM 2.1 mg/dL (1.8-2.4)
[2020-11-05] MEDS ORDERED: ACETAMINOPHEN 1000 MG/100 ML VIAL (NON FORMULARY) IVPB ONE (10:40)
[2020-11-05] MEDS ORDERED: SUCRALFATE 1 GM/10 ML UNIT DOSE CUPS PO ONE (10:45)
[2020-11-05] MEDS ORDERED: MAG HYDROX/AL HYDROX/SIMETH 30 ML UNIT-DOSE CUP PO ONE (10:45)
[2020-11-05] MEDS ORDERED: ACETAMINOPHEN INJECTION 100 ML IVPB ONE (10:45)
[2020-11-05] MEDS ORDERED: FAMOTIDINE 20 MG/50 ML IVPB 20 MG/50 ML MG IVPB ONE ×2 (10:45→11:31)
[2020-11-05] MEDS ORDERED: BUPRENORPHINE/NALOXONE 8 MG/2 MG FILM PACKET SL ONE (11:02)
[2020-11-05] MEDS ORDERED: METOCLOPRAMIDE HCL INJECTION 10 MG/2 ML VIAL IVPUSH ONE (11:02)
[2020-11-05] MEDS ORDERED: METOCLOPRAMIDE HCL INJECTION 10 MG/2 ML VIAL ONE (11:30)
[2020-11-05] MEDS ORDERED: BUPRENORPHINE/NALOXONE 8 MG/2 MG FILM PACKET ONE (11:30)
[2020-11-05] MEDS ORDERED: MAG HYDROX/AL HYDROX/SIMETH 30 ML UNIT-DOSE CUP ONE (11:31)
[2020-11-05] MEDS ORDERED: SUCRALFATE 1 GM TABLET (FP) ONE (11:31)
[2020-11-05] MEDS ORDERED: HALOPERIDOL LACTATE 5 MG/ML IM ONE (13:28)
[2020-11-05] MEDS ORDERED: HALOPERIDOL LACTATE 5 MG/ML ONE (13:41)
[2020-11-05 14:40] LABS: PH,URINE >= 9.0 (5.0-8.0); URINE APPEARANCE Clear; URINE BILIRUBIN Negative (NEGATIVE); URINE COLOR Yellow; URINE GLUCOSE (UA) Negative (NEGATIVE); URINE KETONE Negative (NEGATIVE); URINE LEUK ESTERASE Negative (NEGATIVE); URINE NITRITE Negative (NEGATIVE); URINE PROTEIN Negative (NEGATIVE); URINE UROBILINOGEN 0.2 mg/dL (0.2-1.0)
[2020-11-05 14:48] LABS: EPI CELLS FEW /uL (0-25.1); URINE RBC 0-3 /uL (0-23.9); URINE WBC 0-3 /uL (0-25.8)
[2020-11-05 15:37] VITALS: BP 134/68; PULSE 78
== END 2020-11-05 15:37 | disposition home or self-care (01) ==
LOC: JER 08:47
PROC: 3E023NZ Introduction of Analgesics, Hypnotics, Sedatives into Muscle, Percutaneous Approach (ICD-10-PCS; principal; 2020-11-05)
DX: F12.188 Cannabis abuse with other cannabis-induced disorder (principal)
CPT/HCPCS: 36415; 74177-TC; 80053; 81003; 83690; 83735; 84703; 85025; 87086; 93005; 93010; 99285-25; C9803; J0131; Q9967; U0003; U0005

== ENCOUNTER 2024-05-21 18:07 | Inpatient (IN) | payer OTHER ==
[2024-05-21 18:15] VITALS: BMI 29.2
[2024-05-21 20:26] LABS: BASO % 0.8 % (0-2.0); HEMATOCRIT 32.1 % (32.4-45.2); LYMPH % 32.8 % (8-40); MCH 26.6 pg (25.7-33.7); MCHC 31.2 g/dl (32.0-36.0); MEAN CELL VOLUME 85.5 fl (80-96); MEAN PLT VOLUME 7.2 fl (7.5-11.1); NEUT % 56.4 % (42.8-82.8); PLATELET COUNT 474 10^3/uL (134-434); RBC 3.75 M/mm3 (3.60-5.2); RDW 19.6 % (11.6-15.6); WHITE BLOOD COUNT 10.1 K/mm3 (4.0-10.0)
[2024-05-21] MEDS: ACETAMINOPHEN 1000 MG/100 ML BAG IVPB ONE (20:42)
[2024-05-21 20:50] LABS: POTASSIUM 3.7 mmol/L (3.5-5.1)
[2024-05-21] MEDS ORDERED: ALBUTEROL SO4 2.5/IPRATROPIUM 0.5 INH SOL 3 ML VIAL.NEB. NEB ONE ×3 (20:51→21:59)
[2024-05-21] MEDS ORDERED: ACETAMINOPHEN INJECTION 100 ML ONE (20:51)
[2024-05-21 20:52] LABS: ALBUMIN 3.2 g/dl (3.4-5.0); BLOOD UREA NITROGEN 10.6 mg/dL (7-18); CALCIUM 9.1 mg/dL (8.5-10.1)
[2024-05-21 20:56] LABS: CREATININE 0.9 mg/dL (0.55-1.3)
[2024-05-21 20:57] LABS: BILIRUBIN,TOTAL 0.2 mg/dL (0.2-1); TOT PROT 7.2 g/dl (6.4-8.2)
[2024-05-21] MEDS ORDERED: HEPARIN NA (PORCINE) 5,000 UNITS/ML 1ML VIAL ONE (21:15)
[2024-05-21 21:24] LABS: INR 1.24 (0.83-1.09); PROTHROMBIN TIME (PATIENT) 13.9 SEC (9.7-13.0)
[2024-05-21 21:26] LABS: ACTIVATED PTT 34.2 SECONDS (25.2-36.5)
[2024-05-21] MEDS: ALBUTEROL SO4 2.5/IPRATROPIUM 0.5 INH SOL 3 ML VIAL.NEB. NEB SCH (21:42)
[2024-05-21] MEDS: HEPARIN NA (PORCINE) 5,000 UNITS/ML 1ML VIAL IVPUSH ONE (21:42)
[2024-05-21] MEDS ORDERED: HEPARIN INFUSION - 25,000 UNITS/500 ML INFUS.BAG IVPB ONE (21:46)
[2024-05-21 21:55] LABS: HIV INTERPRETATION NEGATIVE (NEGATIVE)
[2024-05-21] MEDS: HEPARIN INFUSION - 25,000 UNITS/500 ML INFUS.BAG IVPB SCH (21:57)
[2024-05-22] MEDS ORDERED: DOXYCYCLINE HYCLATE 100 MG VIAL ONE ×2 (02:02→08:41)
[2024-05-22] MEDS ORDERED: ACETAMINOPHEN 325 MG TABLET (FP) ONE ×2 (02:03→10:31)
[2024-05-22] MEDS: DOXYCYCLINE INJECTION 100 MG in DEXTROSE 5%-WATER 100 ML IVPB SCH (02:08)
[2024-05-22] MEDS ORDERED: MORPHINE SULFATE 2 MG/ML SYRINGE ONE (03:01)
[2024-05-22] MEDS: MORPHINE SULFATE 2 MG/ML SYRINGE IVPUSH ONE (03:08)
[2024-05-22] MEDS ORDERED: buPROPion HCL 100 MG TABLET ONE (08:41)
[2024-05-22] MEDS ORDERED: BUPRENORPHINE/NALOXONE 8 MG/2 MG FILM PACKET ONE ×2 (08:41→14:39)
[2024-05-22] MEDS: BUPRENORPHINE/NALOXONE 8 MG/2 MG FILM PACKET SL SCH (09:21)
[2024-05-22] MEDS: VARENICLINE TARTRATE 1 MG TAB PO SCH (09:55)
[2024-05-22] MEDS ORDERED: GABAPENTIN 300 MG CAPSULE ONE ×2 (10:31→14:39)
[2024-05-22] MEDS: ACETAMINOPHEN 500 MG TABLET (FP) PO PRN (10:35)
[2024-05-22] MEDS: GABAPENTIN 300 MG CAPSULE PO SCH (10:36)
[2024-05-22 12:20] LABS: HEMATOCRIT 29.8 % (32.4-45.2); HEMOGLOBIN 9.5 GM/dL (10.7-15.3); MCH 27.2 pg (25.7-33.7); MCHC 31.9 g/dl (32.0-36.0); MEAN CELL VOLUME 85.4 fl (80-96); MEAN PLT VOLUME 7.7 fl (7.5-11.1); PLATELET COUNT 415 10^3/uL (134-434); RBC 3.48 M/mm3 (3.60-5.2); RDW 19.6 % (11.6-15.6); WHITE BLOOD COUNT 9.2 K/mm3 (4.0-10.0)
[2024-05-22 12:29] LABS: INR 1.27 (0.83-1.09); PROTHROMBIN TIME (PATIENT) 14.3 SEC (9.7-13.0)
[2024-05-22 12:31] LABS: ACTIVATED PTT 31.9 SECONDS (25.2-36.5)
[2024-05-22 12:39] LABS: POTASSIUM 3.9 mmol/L (3.5-5.1)
[2024-05-22 12:41] LABS: ALBUMIN 2.7 g/dl (3.4-5.0); BLOOD UREA NITROGEN 7.8 mg/dL (7-18); CALCIUM 8.5 mg/dL (8.5-10.1); MAGNESIUM 1.7 mg/dL (1.8-2.4)
[2024-05-22 12:44] LABS: PHOSPHOROUS 4.2 mg/dL (2.5-4.9)
[2024-05-22 12:45] LABS: CREATININE 0.6 mg/dL (0.55-1.3)
[2024-05-22 12:46] LABS: BILIRUBIN,TOTAL 0.3 mg/dL (0.2-1)
[2024-05-22 12:50] LABS: TOT PROT 6.4 g/dl (6.4-8.2)
[2024-05-22] MEDS ORDERED: HEPARIN NA (PORCINE) 5,000 UNITS/ML 1ML VIAL ONE (13:09)
[2024-05-22] MEDS ORDERED: ACETAMINOPHEN 500 MG TABLET (FP) PO PRN (13:32)
[2024-05-22] MEDS ORDERED: MAGNESIUM SULFATE IN WATER 2 GM/50 ML IVPB IVPB ONE (14:40)
[2024-05-22] MEDS: MAGNESIUM 2GM/50ML STERILE WATER IVPB IVPB ONE (17:29)
[2024-05-22] MEDS: morphine SULFATE 4 MG/ML VIAL IVPUSH PRN (17:35)
[2024-05-22] MEDS: PIPERACILLIN/TAZOB 3.375 GM 50 ML IVPB SCH (18:19)
[2024-05-23] MEDS ORDERED: HEPARIN NA (PORCINE) 5,000 UNITS/ML 1ML VIAL IVPUSH PRN ×3 (03:31→03:55)
[2024-05-23] MEDS ORDERED: HEPARIN INFUSION - 25,000 UNITS/500 ML INFUS.BAG IVPB SCH (03:45)
[2024-05-23] MEDS: HEPARIN NA (PORCINE) 5,000 UNITS/ML 1ML VIAL IVPUSH PRN (04:07)
[2024-05-23 09:29] VITALS: RESP 18
[2024-05-23] MEDS ORDERED: ENOXAPARIN NA (PORCINE) 40 MG/0.4 ML DISP.SYRIN SQ SCH (10:00)
[2024-05-23 21:18] VITALS: TEMP 99
[2024-05-23] MEDS: ENOXAPARIN NA (PORCINE) 80 MG/0.8 ML DISP.SYRIN SQ SCH (21:47)
[2024-05-24 06:57] VITALS: BP 92/69; PULSE 82
== END 2024-05-24 14:33 | disposition home or self-care (01) | DRG 197 ==
LOC: JER 18:07 → OBSVTOIN 20:22 → JERBED 20:22 → J4S 05-22 15:17
PROVIDERS: ADMIT Internal Medicine; ATTEND Internal Medicine
DX: I82.419 Acute embolism and thrombosis of unspecified femoral vein (principal); F11.90 Opioid use, unspecified, uncomplicated; I82.539 Chronic embolism and thrombosis of unspecified popliteal vein; L97.818 Non-pressure chronic ulcer of other part of right lower leg with other specified severity; E03.9 Hypothyroidism, unspecified; R73.03 Prediabetes; G62.9 Polyneuropathy, unspecified; K59.00 Constipation, unspecified
CPT/HCPCS: 0241U-QW; 36415; 71045-TC-FY; 71275-TC; 80053; 83036; 83735; 84100; 85025; 85027; 85610; 85651; 85730; 86140; 86803; 86850; 86900; 86901; 87389; 93005; 93010; 93971-TC; 99285-25; J0131; J1644; Q9967